=== PATIENT | female | born 1960 | race Caucasian/White ===

== ENCOUNTER 2016-08-05 22:37 | Emergency (ER) | payer BC ==
[~2016-08-05] VITALS: Ht 175.3 cm; Wt 92.5 kg
[~2016-08-05 22:37] MED LIST: ACTOS 30 MG TAB30 MG PO; ALLEGRA ALLERG180 MG PO; BENTYL 10 MG CA10 M1 PO; CYMBALTA30 MG PO; CYMBALTA60 MG PO; FLEXERIL PO; IBUPROFEN 200200 M1 PO; JANUMET 50-5001 EACH PO; LANTUS SC; LEVEMIR100 UNIT/1 SUBQ; MUCINEX TA600 MG/TA2 PO; NEURONTIN300 MG PO; ONDANSETRON HCL4 M2 PO; PROTONIX40 M2 PO; VITAMIN D1000 UNI1 PO
[2016-08-05 23:09] LABS: ABSOLUTE NEUTROPHILS 6.9 thou/uL (1.4-8.2); BASOPHILS 0.5 % (0.0-2.0); EOSINOPHILS 1.2 % (0.0-3.0); HEMATOCRIT 40.7 % (37.0-47.0); HEMOGLOBIN 13.8 gm/dL (12.0-15.0); LYMPHOCYTES 18.9 % (24.0-44.0); MCH 29.1 pg (26.0-34.0); MCV 85.5 fL (80.0-100.0); MONOCYTES 7.5 % (1.0-8.0); PLATELET COUNT 433 thou/uL (150-400); POLYS 71.9 % (36.0-66.0); RBC 4.76 mil/uL (4.20-5.00); RDW 13.6 % (10.5-14.5); WBC 9.6 thou/uL (4.0-11.0)
[2016-08-05 23:10] LABS: MANUAL DIFF NO
[2016-08-05 23:17] LABS: CALCIUM 9.7 mg/dL (8.5-10.1); CREATININE 1.1 mg/dL (0.6-1.0); POTASSIUM 3.2 mmol/L (3.5-5.1)
[2016-08-05 23:22] LABS: ALBUMIN 3.5 g/dL (3.4-5.0); TOTAL BILIRUBIN 0.5 mg/dL (<0.1-1.0); TOTAL PROTEIN 7.5 g/dL (6.4-8.2)
[2016-08-06 00:55] LABS: URINE BLOOD NEGATIVE (Negative); URINE COLOR YELLOW; URINE GLUCOSE-RANDOM* NEGATIVE (Negative); URINE KETONES TRACE (Negative); URINE LEUKOCYTES-REFLEX 1+ (Negative); URINE PROTEIN (DIPSTICK) 1+ (Negative); URINE SPECIFIC GRAVITY >= 1.030 (1.003-1.035); URINE UROBILINOGEN 0.2 E.U./dl (0.2-1.0)
[2016-08-06 01:02] LABS: ICTOTEST (BILI CONFIRMATORY) Negative (Negative); URINE BILIRUBIN NEGATIVE (Negative)
[2016-08-06 01:59] LABS: CRYSTALS None Seen /LPF (None Seen); HYALINE CASTS >10 Many /LPF (None Seen); SQUAMOUS 0-3 Few /LPF (0-3); URINE RBC None Seen /HPF (0-2); URINE WBC-REFLEX 6-15 Few /HPF (0-5); WBC CLUMPS Rare (None Seen)
[2016-08-06] MEDS ORDERED: CIPROFLOXACIN500 M1 PO (02:28)
[2016-08-06] MEDS ORDERED: PHENERGAN 25 MG25 M1 PO (02:28)
== END 2016-08-06 03:01 ==
LOC: ER 22:37
PROVIDERS: Emergency Medicine
DX: N39.0 Urinary tract infection, site not specified (principal); F10.99 Alcohol use, unspecified with unspecified alcohol-induced disorder; Z98.890 Other specified postprocedural states; Z88.2 Allergy status to sulfonamides; Z91.09 Other allergy status, other than to drugs and biological substances

== ENCOUNTER 2017-12-17 15:59 | Inpatient (IN) | payer BC ==
[~2017-12-17] VITALS: Ht 175.3 cm; Wt 112.0 kg
--- NOTE | ~2017-12-17 | EKG ---
[place] [address] [facility] [place] [address] ELECTROCARDIOGRAM REPORT Name: JUNE RUBIN Room #: [facility]#: [id number] Admission: 12/17/17 Attend Phys: Discharge: Date of : 56 Report #: [id number] THIS REPORT FOR: //name// [facility] ED Test Date: 2017-12-17 Test Time: 16:20:43 Pat Name: JUNE RUBIN Department: Room: Gender: F Sponsorship Manager: PANDA : 1960 Requested By: Desiree Hernandez Order Number: [id number] MD: Zacarias Mireles Measurements Intervals [place] Rate: 121 P: MN: QRS: 7 QRSD: 87 T: 42 QT: 316 QTc: 449 Interpretive Statements Atrial fibrillation Low voltage, extremity leads No previous ECG available for comparison Electronically Signed On 12-17-2017 17:22:45 CDT by Zacarias Mireles [email or web address] <ELECTRONICALLY SIGNED> By: Zacarias Mireles MD, [facility] 12/17/17 1722 1620 1620 Zaacrias Mireles MD, FACC /EPI
[2017-12-17 15:59] VITALS: BP 134/89
[~2017-12-17 15:59] MED LIST changes: +CIPROFLOXACIN500 M1 PO; +PHENERGAN 25 MG25 M1 PO
[2017-12-17] MEDS ORDERED: NEURONTIN600 MG PO ×2 (16:11)
[2017-12-17 16:21] LABS: HEMATOCRIT 40.9 % (37.0-47.0); HEMOGLOBIN 13.8 gm/dL (12.0-15.0); MCH 28.6 pg (26.0-34.0); MCHC 33.8 g/dL (28.0-37.0); MCV 84.6 fL (80.0-100.0); PLATELET COUNT 443 thou/uL (150-400); RBC 4.83 mil/uL (4.20-5.00); RDW 13.7 % (10.5-14.5); WBC 21.9 thou/uL (4.0-11.0)
[2017-12-17 16:31] LABS: CREATININE 1.4 mg/dL (0.6-1.0); POTASSIUM 4.3 mmol/L (3.5-5.1)
[2017-12-17 16:37] LABS: ALBUMIN 2.6 g/dL (3.4-5.0); TOTAL BILIRUBIN 0.5 mg/dL (<0.1-1.0); TOTAL PROTEIN 8.9 g/dL (6.4-8.2)
[2017-12-17 16:55] LABS: ABSOLUTE NEUTROPHILS 20.1 thou/uL (1.4-8.2)
[2017-12-17 17:07] LABS: HCO3 21.7 mmol/L (22.0-26.0); PCO2 VENOUS 41.8 mmHg (41.0-51.0)
[2017-12-17 17:45] LABS: URINE BLOOD 2+ (Negative); URINE CLARITY CLEAR; URINE COLOR YELLOW; URINE GLUCOSE-RANDOM* 3+ (Negative); URINE KETONES 3+ (Negative); URINE LEUKOCYTES TRACE (Negative); URINE NITRITE NEGATIVE (Negative); URINE PROTEIN (DIPSTICK) 1+ (Negative); URINE UROBILINOGEN 0.2 E.U./dl (0.2-1.0)
[2017-12-17 17:47] LABS: ICTOTEST (BILI CONFIRMATORY) Negative (Negative); URINE BILIRUBIN NEGATIVE (Negative)
[2017-12-17 17:52] LABS: CASTS None Seen /LPF (None Seen); CRYSTALS None Seen /LPF (None Seen); SQUAMOUS 0-3 Few /LPF (0-3); URINE RBC 3-10 Few /HPF (0-2); URINE WBC >25 Many /HPF (0-5)
[2017-12-17 18:35] VITALS: BP 161/90
[2017-12-17 19:08] VITALS: BP 152/81
[2017-12-17 19:50] VITALS: BP 146/84
[2017-12-18 03:18] VITALS: BP 138/73
[2017-12-18 06:08] LABS: HEMATOCRIT 35.6 % (37.0-47.0); MCH 27.7 pg (26.0-34.0); MCHC 32.7 g/dL (28.0-37.0); MCV 84.8 fL (80.0-100.0); RBC 4.2 mil/uL (4.20-5.00); RDW 13.7 % (10.5-14.5); WBC 17.5 thou/uL (4.0-11.0)
[2017-12-18 06:27] LABS: HEMOGLOBIN 11.6 gm/dL (12.0-15.0)
[2017-12-18 06:29] LABS: CALCIUM 8.6 mg/dL (8.5-10.1); CREATININE 1.1 mg/dL (0.6-1.0); POTASSIUM 4.2 mmol/L (3.5-5.1)
[2017-12-18] MEDS ORDERED: JANUMET 50-5001 EACH PO (09:28)
[2017-12-18] MEDS ORDERED: ALLEGRA ALLERG180 MG PO (09:30)
[2017-12-18 10:45] VITALS: BP 157/84
[2017-12-18 15:40] VITALS: BP 171/72
[2017-12-19 06:03] VITALS: BP 151/83
[2017-12-19 07:35] VITALS: BP 155/71
[2017-12-19 07:48] LABS: HEMATOCRIT 33.3 % (37.0-47.0); HEMOGLOBIN 11.1 gm/dL (12.0-15.0); MCH 27.9 pg (26.0-34.0); MCHC 33.3 g/dL (28.0-37.0); RBC 3.96 mil/uL (4.20-5.00); RDW 13.8 % (10.5-14.5); WBC 12.1 thou/uL (4.0-11.0)
[2017-12-19 08:01] LABS: CALCIUM 8.4 mg/dL (8.5-10.1); CREATININE 0.9 mg/dL (0.6-1.0); POTASSIUM 3.3 mmol/L (3.5-5.1)
[2017-12-19 20:00] VITALS: BP 120/73
[2017-12-20 08:18] VITALS: BP 119/71
[2017-12-20 08:39] LABS: HEMATOCRIT 32.3 % (37.0-47.0); HEMOGLOBIN 10.6 gm/dL (12.0-15.0); MCH 27.7 pg (26.0-34.0); MCHC 32.8 g/dL (28.0-37.0); MCV 84.4 fL (80.0-100.0); RBC 3.82 mil/uL (4.20-5.00); RDW 13.9 % (10.5-14.5); WBC 10.2 thou/uL (4.0-11.0)
[2017-12-20 08:44] LABS: CALCIUM 8.6 mg/dL (8.5-10.1); CREATININE 0.9 mg/dL (0.6-1.0); POTASSIUM 3.2 mmol/L (3.5-5.1)
[2017-12-20 19:50] VITALS: BP 160/85
[2017-12-21] MEDS ORDERED: CEFDINIR300 MG PO (07:52)
[2017-12-21 07:56] VITALS: BP 160/85
[2017-12-21 08:10] VITALS: BP 144/89
[2017-12-21 10:23] VITALS: BP 160/85
[2017-12-21 12:52] VITALS: BP 160/85
[2017-12-21 13:02] VITALS: BP 160/85
[2017-12-21 13:31] VITALS: BP 160/85
== END 2017-12-21 14:23 | disposition home or self-care (01) | DRG 871 ==
LOC: ER 15:59 → EROBS 18:21 → 4W 18:21 → SICU 12-18 19:54
PROVIDERS: Family Medicine; Physician Assistant
DX: A41.9 Sepsis, unspecified organism (principal); N17.0 Acute kidney failure with tubular necrosis; N39.0 Urinary tract infection, site not specified; N17.9 Acute kidney failure, unspecified; E86.0 Dehydration; E11.9 Type 2 diabetes mellitus without complications; Z88.2 Allergy status to sulfonamides; Z91.048 Other nonmedicinal substance allergy status; Z23 Encounter for immunization; Z79.899 Other long term (current) drug therapy
CPT/HCPCS: 10045; 15002

== ENCOUNTER → 2018-07-18 | Outpatient (CLI) | payer BC ==
[~2018-07-18] MED LIST changes: +CEFDINIR300 MG PO; +NEURONTIN600 MG PO
== END ==
LOC: HYPER 06:49
DX: E11.621 Type 2 diabetes mellitus with foot ulcer (principal); L97.521 Non-pressure chronic ulcer of other part of left foot limited to breakdown of skin; L97.512 Non-pressure chronic ulcer of other part of right foot with fat layer exposed; L84 Corns and callosities; E11.610 Type 2 diabetes mellitus with diabetic neuropathic arthropathy; E11.40 Type 2 diabetes mellitus with diabetic neuropathy, unspecified; K21.9 Gastro-esophageal reflux disease without esophagitis; M19.90 Unspecified osteoarthritis, unspecified site; M81.0 Age-related osteoporosis without current pathological fracture; F32.9 Major depressive disorder, single episode, unspecified; F41.9 Anxiety disorder, unspecified; Z79.4 Long term (current) use of insulin; Z98.41 Cataract extraction status, right eye

== ENCOUNTER → 2018-07-25 | Outpatient (CLI) | payer BC | LOC: HYPER 06:45 | DX: E11.621 Type 2 diabetes mellitus with foot ulcer (principal); L97.521 Non-pressure chronic ulcer of other part of left foot limited to breakdown of skin; L97.512 Non-pressure chronic ulcer of other part of right foot with fat layer exposed; L84 Corns and callosities; E11.610 Type 2 diabetes mellitus with diabetic neuropathic arthropathy; E11.40 Type 2 diabetes mellitus with diabetic neuropathy, unspecified; K21.9 Gastro-esophageal reflux disease without esophagitis; M81.0 Age-related osteoporosis without current pathological fracture; M19.90 Unspecified osteoarthritis, unspecified site; F32.9 Major depressive disorder, single episode, unspecified; F41.9 Anxiety disorder, unspecified; Z79.4 Long term (current) use of insulin ==

== ENCOUNTER → 2018-08-01 | Outpatient (CLI) | payer BC | LOC: HYPER 06:52 | DX: E11.621 Type 2 diabetes mellitus with foot ulcer (principal); L97.521 Non-pressure chronic ulcer of other part of left foot limited to breakdown of skin; L97.512 Non-pressure chronic ulcer of other part of right foot with fat layer exposed; L84 Corns and callosities; E11.610 Type 2 diabetes mellitus with diabetic neuropathic arthropathy; E11.40 Type 2 diabetes mellitus with diabetic neuropathy, unspecified; K21.9 Gastro-esophageal reflux disease without esophagitis; M19.90 Unspecified osteoarthritis, unspecified site; M81.0 Age-related osteoporosis without current pathological fracture; F32.9 Major depressive disorder, single episode, unspecified; F41.9 Anxiety disorder, unspecified; Z79.4 Long term (current) use of insulin ==

== ENCOUNTER → 2018-08-08 | Outpatient (CLI) | payer BC | LOC: HYPER 06:52 | DX: E11.621 Type 2 diabetes mellitus with foot ulcer (principal); L97.521 Non-pressure chronic ulcer of other part of left foot limited to breakdown of skin; L97.512 Non-pressure chronic ulcer of other part of right foot with fat layer exposed; E11.40 Type 2 diabetes mellitus with diabetic neuropathy, unspecified; L84 Corns and callosities; K21.9 Gastro-esophageal reflux disease without esophagitis; M19.90 Unspecified osteoarthritis, unspecified site; M81.0 Age-related osteoporosis without current pathological fracture; F41.9 Anxiety disorder, unspecified; F32.9 Major depressive disorder, single episode, unspecified; Z79.4 Long term (current) use of insulin; Z87.01 Personal history of pneumonia (recurrent) ==

== ENCOUNTER → 2018-08-14 | Outpatient (CLI) | payer BC | LOC: HYPER 06:48 | DX: E11.621 Type 2 diabetes mellitus with foot ulcer (principal); L97.521 Non-pressure chronic ulcer of other part of left foot limited to breakdown of skin; L97.512 Non-pressure chronic ulcer of other part of right foot with fat layer exposed; E11.610 Type 2 diabetes mellitus with diabetic neuropathic arthropathy; L84 Corns and callosities; E11.40 Type 2 diabetes mellitus with diabetic neuropathy, unspecified; K21.9 Gastro-esophageal reflux disease without esophagitis; M19.90 Unspecified osteoarthritis, unspecified site; M81.0 Age-related osteoporosis without current pathological fracture; F32.9 Major depressive disorder, single episode, unspecified; F41.9 Anxiety disorder, unspecified; F39 Unspecified mood [affective] disorder; Z79.4 Long term (current) use of insulin; Z87.01 Personal history of pneumonia (recurrent) ==

== ENCOUNTER → 2018-08-21 | Outpatient (CLI) | payer BC | LOC: HYPER 06:36 | DX: E11.621 Type 2 diabetes mellitus with foot ulcer (principal); L97.512 Non-pressure chronic ulcer of other part of right foot with fat layer exposed; L97.521 Non-pressure chronic ulcer of other part of left foot limited to breakdown of skin; E11.610 Type 2 diabetes mellitus with diabetic neuropathic arthropathy; E11.40 Type 2 diabetes mellitus with diabetic neuropathy, unspecified; L84 Corns and callosities; K21.9 Gastro-esophageal reflux disease without esophagitis; M19.90 Unspecified osteoarthritis, unspecified site; M81.0 Age-related osteoporosis without current pathological fracture; F32.9 Major depressive disorder, single episode, unspecified; F41.9 Anxiety disorder, unspecified; Z87.01 Personal history of pneumonia (recurrent); Z79.4 Long term (current) use of insulin ==

== ENCOUNTER → 2018-08-28 | Outpatient (CLI) | payer BC | LOC: HYPER 06:27 | DX: E11.621 Type 2 diabetes mellitus with foot ulcer (principal); L97.521 Non-pressure chronic ulcer of other part of left foot limited to breakdown of skin; L97.512 Non-pressure chronic ulcer of other part of right foot with fat layer exposed; E11.610 Type 2 diabetes mellitus with diabetic neuropathic arthropathy; E11.40 Type 2 diabetes mellitus with diabetic neuropathy, unspecified; K21.9 Gastro-esophageal reflux disease without esophagitis; M19.90 Unspecified osteoarthritis, unspecified site; M81.0 Age-related osteoporosis without current pathological fracture; F32.9 Major depressive disorder, single episode, unspecified; Z79.4 Long term (current) use of insulin; Z87.01 Personal history of pneumonia (recurrent) ==

== ENCOUNTER → 2018-09-03 | Outpatient (CLI) | payer BC | LOC: HYPER 06:43 | DX: E11.621 Type 2 diabetes mellitus with foot ulcer (principal); L97.521 Non-pressure chronic ulcer of other part of left foot limited to breakdown of skin; L97.512 Non-pressure chronic ulcer of other part of right foot with fat layer exposed; E11.610 Type 2 diabetes mellitus with diabetic neuropathic arthropathy; E11.40 Type 2 diabetes mellitus with diabetic neuropathy, unspecified; L84 Corns and callosities; K21.9 Gastro-esophageal reflux disease without esophagitis; M19.90 Unspecified osteoarthritis, unspecified site; M81.0 Age-related osteoporosis without current pathological fracture; F41.9 Anxiety disorder, unspecified; F32.9 Major depressive disorder, single episode, unspecified; Z87.01 Personal history of pneumonia (recurrent); Z79.4 Long term (current) use of insulin ==

== ENCOUNTER → 2018-09-18 | Outpatient (CLI) | payer BC | LOC: HYPER 06:26 | DX: E11.621 Type 2 diabetes mellitus with foot ulcer (principal); L97.512 Non-pressure chronic ulcer of other part of right foot with fat layer exposed; L97.521 Non-pressure chronic ulcer of other part of left foot limited to breakdown of skin; E11.610 Type 2 diabetes mellitus with diabetic neuropathic arthropathy; E11.40 Type 2 diabetes mellitus with diabetic neuropathy, unspecified; L84 Corns and callosities; K21.9 Gastro-esophageal reflux disease without esophagitis; M19.90 Unspecified osteoarthritis, unspecified site; M81.0 Age-related osteoporosis without current pathological fracture; F41.9 Anxiety disorder, unspecified; F32.9 Major depressive disorder, single episode, unspecified; Z79.4 Long term (current) use of insulin; Z87.01 Personal history of pneumonia (recurrent) ==

== ENCOUNTER → 2018-09-25 | Outpatient (CLI) | payer BC | LOC: HYPER 06:37 | DX: E11.621 Type 2 diabetes mellitus with foot ulcer (principal); L97.521 Non-pressure chronic ulcer of other part of left foot limited to breakdown of skin; L97.512 Non-pressure chronic ulcer of other part of right foot with fat layer exposed; L84 Corns and callosities; E11.610 Type 2 diabetes mellitus with diabetic neuropathic arthropathy; E11.40 Type 2 diabetes mellitus with diabetic neuropathy, unspecified; K21.9 Gastro-esophageal reflux disease without esophagitis; M19.90 Unspecified osteoarthritis, unspecified site; M81.0 Age-related osteoporosis without current pathological fracture; F32.9 Major depressive disorder, single episode, unspecified; F41.9 Anxiety disorder, unspecified; Z79.4 Long term (current) use of insulin ==

== ENCOUNTER → 2018-10-03 | Outpatient (CLI) | payer BC | LOC: HYPER 06:53 | DX: E11.621 Type 2 diabetes mellitus with foot ulcer (principal); L97.512 Non-pressure chronic ulcer of other part of right foot with fat layer exposed; L97.521 Non-pressure chronic ulcer of other part of left foot limited to breakdown of skin; E11.610 Type 2 diabetes mellitus with diabetic neuropathic arthropathy; E11.40 Type 2 diabetes mellitus with diabetic neuropathy, unspecified; L84 Corns and callosities; K21.9 Gastro-esophageal reflux disease without esophagitis; M19.90 Unspecified osteoarthritis, unspecified site; M81.0 Age-related osteoporosis without current pathological fracture; F41.9 Anxiety disorder, unspecified; F32.9 Major depressive disorder, single episode, unspecified; Z79.4 Long term (current) use of insulin; Z87.01 Personal history of pneumonia (recurrent) ==

== ENCOUNTER → 2018-10-17 | Outpatient (CLI) | payer BC | LOC: HYPER 06:51 | DX: E11.621 Type 2 diabetes mellitus with foot ulcer (principal); L97.521 Non-pressure chronic ulcer of other part of left foot limited to breakdown of skin; L97.512 Non-pressure chronic ulcer of other part of right foot with fat layer exposed; L84 Corns and callosities; E11.610 Type 2 diabetes mellitus with diabetic neuropathic arthropathy; E11.40 Type 2 diabetes mellitus with diabetic neuropathy, unspecified; K21.9 Gastro-esophageal reflux disease without esophagitis; M19.90 Unspecified osteoarthritis, unspecified site; M81.0 Age-related osteoporosis without current pathological fracture; F41.9 Anxiety disorder, unspecified; F32.9 Major depressive disorder, single episode, unspecified; Z79.4 Long term (current) use of insulin ==

== ENCOUNTER → 2018-10-31 | Outpatient (CLI) | payer BC | LOC: HYPER 06:56 | DX: E11.621 Type 2 diabetes mellitus with foot ulcer (principal); L97.512 Non-pressure chronic ulcer of other part of right foot with fat layer exposed; L97.521 Non-pressure chronic ulcer of other part of left foot limited to breakdown of skin; E11.610 Type 2 diabetes mellitus with diabetic neuropathic arthropathy; L84 Corns and callosities; E11.40 Type 2 diabetes mellitus with diabetic neuropathy, unspecified; K21.9 Gastro-esophageal reflux disease without esophagitis; M19.90 Unspecified osteoarthritis, unspecified site; M81.0 Age-related osteoporosis without current pathological fracture; F41.9 Anxiety disorder, unspecified; F32.9 Major depressive disorder, single episode, unspecified; Z79.4 Long term (current) use of insulin; Z87.01 Personal history of pneumonia (recurrent) ==

== ENCOUNTER → 2018-11-14 | Outpatient (CLI) | payer BC | LOC: HYPER 06:57 | DX: E11.621 Type 2 diabetes mellitus with foot ulcer (principal); L97.521 Non-pressure chronic ulcer of other part of left foot limited to breakdown of skin; L97.512 Non-pressure chronic ulcer of other part of right foot with fat layer exposed; E11.610 Type 2 diabetes mellitus with diabetic neuropathic arthropathy; E11.40 Type 2 diabetes mellitus with diabetic neuropathy, unspecified; K21.9 Gastro-esophageal reflux disease without esophagitis; L84 Corns and callosities; M19.90 Unspecified osteoarthritis, unspecified site; M81.0 Age-related osteoporosis without current pathological fracture; F41.9 Anxiety disorder, unspecified; F32.9 Major depressive disorder, single episode, unspecified; Z79.4 Long term (current) use of insulin; Z87.01 Personal history of pneumonia (recurrent) ==

== ENCOUNTER → 2018-12-04 | Outpatient (CLI) | payer BC | LOC: HYPER 07:09 | DX: E11.621 Type 2 diabetes mellitus with foot ulcer (principal); L97.521 Non-pressure chronic ulcer of other part of left foot limited to breakdown of skin; L97.512 Non-pressure chronic ulcer of other part of right foot with fat layer exposed; L84 Corns and callosities; E11.610 Type 2 diabetes mellitus with diabetic neuropathic arthropathy; E11.40 Type 2 diabetes mellitus with diabetic neuropathy, unspecified; M19.90 Unspecified osteoarthritis, unspecified site; M81.0 Age-related osteoporosis without current pathological fracture; K21.9 Gastro-esophageal reflux disease without esophagitis; F41.9 Anxiety disorder, unspecified; F32.9 Major depressive disorder, single episode, unspecified; Z79.4 Long term (current) use of insulin ==

== ENCOUNTER → 2019-01-14 | Outpatient (CLI) | payer BC | LOC: HYPER 09:30 | DX: E11.621 Type 2 diabetes mellitus with foot ulcer (principal); L97.512 Non-pressure chronic ulcer of other part of right foot with fat layer exposed; L97.521 Non-pressure chronic ulcer of other part of left foot limited to breakdown of skin; E11.610 Type 2 diabetes mellitus with diabetic neuropathic arthropathy; E11.40 Type 2 diabetes mellitus with diabetic neuropathy, unspecified; L84 Corns and callosities; K21.9 Gastro-esophageal reflux disease without esophagitis; M19.90 Unspecified osteoarthritis, unspecified site; M81.0 Age-related osteoporosis without current pathological fracture; F41.9 Anxiety disorder, unspecified; F32.9 Major depressive disorder, single episode, unspecified; Z79.4 Long term (current) use of insulin; Z87.01 Personal history of pneumonia (recurrent) ==

== ENCOUNTER → 2019-01-28 | Outpatient (CLI) | payer BC | LOC: HYPER 16:45 | DX: E11.621 Type 2 diabetes mellitus with foot ulcer (principal); L97.512 Non-pressure chronic ulcer of other part of right foot with fat layer exposed; E11.610 Type 2 diabetes mellitus with diabetic neuropathic arthropathy; E11.40 Type 2 diabetes mellitus with diabetic neuropathy, unspecified; L84 Corns and callosities; K21.9 Gastro-esophageal reflux disease without esophagitis; M19.90 Unspecified osteoarthritis, unspecified site; M81.0 Age-related osteoporosis without current pathological fracture; F41.9 Anxiety disorder, unspecified; F32.9 Major depressive disorder, single episode, unspecified; Z79.4 Long term (current) use of insulin; Z87.01 Personal history of pneumonia (recurrent) ==

== ENCOUNTER → 2019-03-11 | Outpatient (CLI) | payer OTHER | LOC: HYPER 09:58 | DX: E11.621 Type 2 diabetes mellitus with foot ulcer (principal); L97.512 Non-pressure chronic ulcer of other part of right foot with fat layer exposed; L84 Corns and callosities; E11.610 Type 2 diabetes mellitus with diabetic neuropathic arthropathy; E11.40 Type 2 diabetes mellitus with diabetic neuropathy, unspecified; E66.9 Obesity, unspecified; K21.9 Gastro-esophageal reflux disease without esophagitis; M19.90 Unspecified osteoarthritis, unspecified site; M81.0 Age-related osteoporosis without current pathological fracture; F41.9 Anxiety disorder, unspecified; F32.9 Major depressive disorder, single episode, unspecified; Z68.35 Body mass index [BMI] 35.0-35.9, adult; Z79.4 Long term (current) use of insulin ==

== ENCOUNTER → 2019-06-19 | Outpatient (CLI) | payer OTHER | LOC: HYPER 08:55 | DX: E11.621 Type 2 diabetes mellitus with foot ulcer (principal); L97.512 Non-pressure chronic ulcer of other part of right foot with fat layer exposed; L84 Corns and callosities; E11.610 Type 2 diabetes mellitus with diabetic neuropathic arthropathy; E11.40 Type 2 diabetes mellitus with diabetic neuropathy, unspecified; E66.9 Obesity, unspecified; M19.90 Unspecified osteoarthritis, unspecified site; M81.0 Age-related osteoporosis without current pathological fracture; K21.9 Gastro-esophageal reflux disease without esophagitis; F32.9 Major depressive disorder, single episode, unspecified; F41.9 Anxiety disorder, unspecified; Z79.4 Long term (current) use of insulin; Z68.35 Body mass index [BMI] 35.0-35.9, adult ==

== ENCOUNTER → 2019-08-25 | Outpatient (CLI) | payer OTHER | LOC: HYPER 09:50 | PROVIDERS: ATTEND Emergency Medicine Emergency Medical Services | DX: E11.621 Type 2 diabetes mellitus with foot ulcer (principal); L97.512 Non-pressure chronic ulcer of other part of right foot with fat layer exposed; L84 Corns and callosities; E11.610 Type 2 diabetes mellitus with diabetic neuropathic arthropathy; E11.40 Type 2 diabetes mellitus with diabetic neuropathy, unspecified; E66.9 Obesity, unspecified; K21.9 Gastro-esophageal reflux disease without esophagitis; M19.90 Unspecified osteoarthritis, unspecified site; M81.0 Age-related osteoporosis without current pathological fracture; F32.9 Major depressive disorder, single episode, unspecified; F41.9 Anxiety disorder, unspecified; Z79.4 Long term (current) use of insulin; Z68.35 Body mass index [BMI] 35.0-35.9, adult ==

== ENCOUNTER → 2019-09-30 | Outpatient (CLI) | payer OTHER | LOC: HYPER 10:51 | PROVIDERS: ATTEND Emergency Medicine | DX: E11.621 Type 2 diabetes mellitus with foot ulcer (principal); L97.512 Non-pressure chronic ulcer of other part of right foot with fat layer exposed; L84 Corns and callosities; E11.610 Type 2 diabetes mellitus with diabetic neuropathic arthropathy; E11.40 Type 2 diabetes mellitus with diabetic neuropathy, unspecified; E66.9 Obesity, unspecified; K21.9 Gastro-esophageal reflux disease without esophagitis; M81.0 Age-related osteoporosis without current pathological fracture; M19.90 Unspecified osteoarthritis, unspecified site; F41.9 Anxiety disorder, unspecified; F32.9 Major depressive disorder, single episode, unspecified; Z79.4 Long term (current) use of insulin; Z68.35 Body mass index [BMI] 35.0-35.9, adult ==

== ENCOUNTER → 2019-10-14 | Outpatient (CLI) | payer OTHER | LOC: LAB 10:22 | PROVIDERS: ATTEND Family Medicine | DX: R06.02 Shortness of breath (principal); R05 Cough; Z20.828 Contact with and (suspected) exposure to other viral communicable diseases ==

== ENCOUNTER → 2019-10-22 | Outpatient (CLI) | payer OTHER | LOC: HYPER 09:16 | PROVIDERS: ATTEND Emergency Medicine | DX: E11.621 Type 2 diabetes mellitus with foot ulcer (principal); L97.512 Non-pressure chronic ulcer of other part of right foot with fat layer exposed; L84 Corns and callosities; E11.610 Type 2 diabetes mellitus with diabetic neuropathic arthropathy; E11.40 Type 2 diabetes mellitus with diabetic neuropathy, unspecified; E66.9 Obesity, unspecified; K21.9 Gastro-esophageal reflux disease without esophagitis; M19.90 Unspecified osteoarthritis, unspecified site; M81.0 Age-related osteoporosis without current pathological fracture; F41.9 Anxiety disorder, unspecified; F32.9 Major depressive disorder, single episode, unspecified; Z79.4 Long term (current) use of insulin; Z68.35 Body mass index [BMI] 35.0-35.9, adult ==

== ENCOUNTER → 2019-11-26 | Outpatient (CLI) | payer OTHER | LOC: HYPER 11-05 16:41 | PROVIDERS: ATTEND Emergency Medicine | DX: E11.621 Type 2 diabetes mellitus with foot ulcer (principal); L97.512 Non-pressure chronic ulcer of other part of right foot with fat layer exposed; L84 Corns and callosities; E11.610 Type 2 diabetes mellitus with diabetic neuropathic arthropathy; E11.40 Type 2 diabetes mellitus with diabetic neuropathy, unspecified; E66.9 Obesity, unspecified; K21.9 Gastro-esophageal reflux disease without esophagitis; M19.90 Unspecified osteoarthritis, unspecified site; M81.0 Age-related osteoporosis without current pathological fracture; F41.9 Anxiety disorder, unspecified; F32.9 Major depressive disorder, single episode, unspecified; Z79.4 Long term (current) use of insulin; Z68.35 Body mass index [BMI] 35.0-35.9, adult ==

== ENCOUNTER 2019-12-09 11:03 | Emergency (ER) | payer OTHER ==
[~2019-12-09] VITALS: Ht 175.3 cm; Wt 104.3 kg
[2019-12-09 11:07] VITALS: BP 128/61
== END 2019-12-09 13:30 | disposition home or self-care (01) ==
LOC: ER 11:03
DX: S01.81XA Laceration without foreign body of other part of head, initial encounter (principal); E11.9 Type 2 diabetes mellitus without complications; Z90.89 Acquired absence of other organs; Z79.4 Long term (current) use of insulin; Z79.899 Other long term (current) drug therapy; Z91.048 Other nonmedicinal substance allergy status; Z88.2 Allergy status to sulfonamides; W01.0XXA Fall on same level from slipping, tripping and stumbling without subsequent striking against object, initial encounter; Y93.89 Activity, other specified; Y92.89 Other specified places as the place of occurrence of the external cause; Y99.8 Other external cause status

== ENCOUNTER 2019-12-11 19:30 | Inpatient (IN) | payer BC ==
[~2019-12-11] VITALS: Ht 175.3 cm; Wt 99.4 kg
--- NOTE | ~2019-12-11 | EMS ---
[address] [address] EMS Patient Care Report Name: JUNE RUBIN Room #: 216-P ADM IN M.R.#: [id number] Admission: 12/11/19 Attend Phys: Emmanuel Epperson MD Discharge: Date of : 56 Report #: [id number] THIS REPORT FOR: //name// Report Transmitted: 12/12/2019 09:33 EMS Care Summary [place], [place]/[facility] Incident [id number] @ 12/11/2019 18:51 Incident Location [facility] [address] [place] [address] Patient JUNE RUBIN Female, 59 Years 1960 Patient Address [address] [place] [address] Patient History Cardiac Arrythmia, Patient Allergies No known allergies, Patient Medications Nitroglycerin, Chief Complaint CHEST PAIN Disposition Transported No Lights/[place] Dispatch Reason Chest Pain (Non-Traumatic) Transported To [facility] Narrative PT STATES THAT PT IS HAVING CHEST PAIN. PT STATES THAT PT'S CHEST PAIN RADIATES TO HER ELBOWS. PT STATES THAT PAIN ALL STARTED WHEN PT WAS LAYING DOWN. PT ADMITS TO NAUSEA. PT DENIES SOA. PT DESCRIBES PAIN A DULL AND FEELING BETTER THAN IT DID. PT HAS NOT OTHER OBVIOUS ABNORMALITIES. [address] [address] EMS Patient Care Report Name: JUNE RUBIN Room #: 216-P [facility] IN [facility]#: [id number] Admission: 12/11/19 Attend Phys: Emmanuel Epperson MD Discharge: Date of : 56 Report #: [id number] PT WAS FOUND SITTING BY PT'S FRONT DOOR. PT SPOKE IN FULL AND COMPLETE SENTENCES. PT IS ABLE TO STAND AND PIVOT TO GET ONTO EMS COT. PT HAS BOTTLE OF NITRO WITH PT WHEN EMS ARRIVES ON SCENE. PT HAS NO OTHER OBVIOUS ABNORMALITIES. Initial Vitals @19:11P: 151, @19:26P: 125,SpO2: 97, @19:12P: 201, @19:25P: 81,BP: 75/56,SpO2: 97, @19:10P: 61, @19:21P: 245,SpO2: 96, @19:20P: 80,R: 18,BP: 103/61,Pain: 6/10,GCS: 15,SpO2: 96,Revised Trauma: 12, @19:06P: 59,R: 18,GCS: 15,Glucose: 121,SpO2: 99,IL Suspected: true @19:04P: 36, @19:19P: 61,CO: 1,SpO2: 83, @19:24P: 64,SpO2: 83, Assessments @19:30MENTAL:Person Oriented,Event Oriented,Time Oriented,Place Oriented,SKIN:Pale,HEENT:Eyes: Left Pupil: 4-mm,Eyes: Right Pupil: 4-mm,Head/Face: No Abnormalities,Neck/Airway: No Abnormalities,LUNG SOUNDS:General: No Abnormalities,ABDOMEN:General: No Abnormalities,PELVIS//GI:EXTREMITIES:Capillary Refill: Right Upper: < 2 Sec,Left Arm: No Abnormalities,Right Arm: No Abnormalities,Left Leg: No Abnormalities,Right Leg: No Abnormalities,PULSE:Radial: 2+ Normal,NEURO:No Abnormalities, Impression Angina pectoris Procedures @19:0612-Lead ECGResponse: UnchangedSucceeded@19:1012-Lead ECGResponse: UnchangedSucceeded@18:59ALS AssessmentResponse: UnchangedSucceeded@19:30STEMI Alert@19:023-Lead ECGResponse: UnchangedSucceeded@19:08Aspirin - 324 Milligrams (mg) - OralResponse: Unchanged@19:12Saline Lock 100cc (18 ga) Site: Antecubital-LeftResponse: UnchangedSucceeded@19:20Nitrostat - 0.4 Milligrams (mg) - SublingualResponse: Unchanged Timeline 18:50,Call Received 18:50,Dispatch Notified 18:51,Dispatched 18:53,En Route 18:58,On Scene 18:59,At Patient [address] [address] EMS Patient Care Report Name: JUNE RUBIN Room #: 216-P [facility] IN ..#: [id number] Admission: 12/11/19 Attend Phys: Emmanuel Epperson MD Discharge: Date of : 56 Report #: [id number] 18:59,ALS Assessment,Response: UnchangedSucceeded, 19:02,3-Lead ECG,Response: UnchangedSucceeded, 19:04,BP: / M,PULSE: 36,RR: R,SPO2: Ox,ETCO2: ,BG: ,PAIN: ,GCS: , 19:06,12-Lead ECG,Response: UnchangedSucceeded, 19:06,BP: / M,PULSE: 59,RR: 18 R,SPO2: 99 Ox,ETCO2: ,B,PAIN: ,GCS: 15, 19:08,Aspirin - 324 Milligrams (mg) - Oral,Response: Unchanged 19:10,12-Lead ECG,Response: UnchangedSucceeded, 19:10,BP: / M,PULSE: 61,RR: R,SPO2: Ox,ETCO2: ,BG: ,PAIN: ,GCS: , 19:11,BP: / M,PULSE: 151,RR: R,SPO2: Ox,ETCO2: ,BG: ,PAIN: ,GCS: , 19:12,Saline Lock 100cc 18 ga Site: Antecubital-Left,Response: UnchangedSucceeded, 19:12,BP: / M,PULSE: 201,RR: R,SPO2: Ox,ETCO2: ,BG: ,PAIN: ,GCS: , 19:18,Depart Scene 19:19,BP: / M,PULSE: 61,RR: R,SPO2: 83 Ox,ETCO2: ,BG: ,PAIN: ,GCS: , 19:20,Nitrostat - 0.4 Milligrams (mg) - Sublingual,Response: Unchanged 19:20,BP: 103/61 M,PULSE: 80,RR: 18 R,SPO2: 96 Ox,ETCO2: ,BG: ,PAIN: 6,GCS: 15, 19:21,BP: / M,PULSE: 245,RR: R,SPO2: 96 Ox,ETCO2: ,BG: ,PAIN: ,GCS: , 19:24,BP: / M,PULSE: 64,RR: R,SPO2: 83 Ox,ETCO2: ,BG: ,PAIN: ,GCS: , 19:25,BP: 75/56 M,PULSE: 81,RR: R,SPO2: 97 Ox,ETCO2: ,BG: ,PAIN: ,GCS: , 19:26,BP: / M,PULSE: 125,RR: R,SPO2: 97 Ox,ETCO2: ,BG: ,PAIN: ,GCS: , 19:27,At Destination 19:30,STEMI Alert, 19:54,Call Closed Disclaimer v1.1 Copyright 2020 [email or web address] This EMS Care Summary contains data elements from the applicable legal record (which may be displayed differently). It is designed to provide pertinent information for the following purposes: continuity of care, clinical quality, and state data reporting. The complete legal record is available to ED staff and administrators of the receiving hospital in [employer]'s Patient Tracker. All data is provided "as is."
--- NOTE | ~2019-12-11 | HC ---
[facility] [place] [address] CONSULTATION Name: JUNE RUBIN Room #: 248-P ADM IN M.R.#: [id number] Admission: 12/11/19 Attend Phys: Emmanuel Epperson MD Discharge: Date of : 56 Report #: [id number] THIS REPORT FOR: cc: Emmanuel Epperson MD, Neal A. MD Smithson, David G. MD ~ DATE OF SERVICE: 12/17/2019 HISTORY OF PRESENT ILLNESS: The patient is a 59-year-old white female, admitted with chest pain, noted to have severe coronary artery disease, status post coronary artery bypass grafting x 6 on 12/15/2019. She is moving very slowly with her postoperative course as discussed with Dr. Silverio. Her course has been complicated by Klebsiella urinary tract infection. She has obesity, significant weakness, and diabetes mellitus, noted to be poorly controlled. We are seeing her in rehabilitation medicine consultation. PAST MEDICAL HISTORY: Includes obesity and hypertension. She has prior right knee problems and she indicates that she apparently needs a new knee. She has had a history of a prior wound involving the right large toe. Past history also includes irritable bowel syndrome, back surgery in 2017, overactive bladder. She had a left axillary growth removed when she was 17 years old. MEDICATIONS: Please see the full medication listing. ALLERGIES: DUST, MOLD, AND SULFA. SOCIAL HISTORY: She lives in a split level house, which she shares with a roommate. There are 6 steps up, plus another 6 steps to get to the level that she stays on. She was having some problems with her right knee before and her sister notes that she would crawl up the steps. She would use a cane at times and sometimes a walker if the knee was bothering her more. There is a sister 30 minutes away who is currently with her in the ICU as well as another sister that lives in ____. The sister that lives 30 minutes away apparently does not have steps into her abode. REVIEW OF SYSTEMS: Frustrated with her current condition. No specific chest pain, shortness of breath or abdominal discomfort. PHYSICAL EXAMINATION: GENERAL: A 59-year-old obese white female, in no obvious distress. She is 5 feet 9 inches, weighs 247 pounds. NEUROMUSCULOSKELETAL: Facies are symmetric. She follows basic 1 step commands. Mid sternal incision is in place as well as chest tube areas. I did some gentle testing of the upper extremities with strength probably a grade 4- to [address] [address] CONSULTATION Name: JUNE RUBIN Room #: 248-P [facility] IN [facility].#: [id number] Admission: 12/11/19 Attend Phys: Emmanuel Epperson MD Discharge: Date of : 56 Report #: [id number] 3+/5. Lower extremity strength is probably at 3+/5. Tone appeared to be intact. She has been dependent for supine scooting. Bed mobility has been max assist. ASSESSMENT: A 59-year-old white female with the following problem list: 1. Significant generalized weakness and debilitation. 2. Coronary artery disease, status post coronary artery bypass grafting x 6 on 12/15/2019. 3. Diabetes mellitus, poorly controlled. 4. Exogenous obesity. 5. Klebsiella urinary tract infection. 6. Prior history of some right knee problems, which sound like some apparent degenerative arthritis. PLAN: Discussion with Dr. Silverio from Cardiovascular Surgery. Agree that rehabilitation is going to be needed to try to help improve strength, endurance, mobility and ADL independence in this patient. Insurance precertification issues to be checked and we will be glad to follow along with you. 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 By: [id number] Talha Sanchez MD /nt
[~2019-12-11 19:30] MED LIST changes: +JANUMET 50-1,01 EACH PO
[2019-12-11 19:31] VITALS: BP 94/53
[2019-12-11 19:50] LABS: ABSOLUTE NEUTROPHILS 9.5 thou/uL (1.4-8.2); BASOPHILS 0.4 % (0.0-2.0); EOSINOPHILS 2.6 % (0.0-3.0); HEMATOCRIT 33.4 % (37.0-47.0); HEMOGLOBIN 10.9 gm/dL (12.0-15.0); LYMPHOCYTES 28.4 % (24.0-44.0); MCH 27.8 pg (26.0-34.0); MCHC 32.6 g/dL (28.0-37.0); MCV 85.4 fL (80.0-100.0); MONOCYTES 7.4 % (1.0-8.0); PLATELET COUNT 444 thou/uL (150-400); POLYS 61.2 % (36.0-66.0); RBC 3.91 mil/uL (4.20-5.00); RDW 13.9 % (10.5-14.5); WBC 15.5 thou/uL (4.0-11.0)
[2019-12-11 19:59] LABS: ANION GAP 11 mmol/L (7-16); BUN 25 mg/dL (7-18); CALCIUM 9.1 mg/dL (8.5-10.1); CHLORIDE 100 mmol/L (98-107); CO2 24 mmol/L (21-32); CREATININE 1.4 mg/dL (0.6-1.0); GLUCOSE 337 mg/dL (74-106); POTASSIUM 4.4 mmol/L (3.5-5.1); SODIUM 135 mmol/L (136-145)
[2019-12-11 20:04] LABS: DIRECT BILIRUBIN 0.1 mg/dL (<0.1-0.2); TOTAL BILIRUBIN 0.3 mg/dL (0.2-1.0); TOTAL PROTEIN 6.9 g/dL (6.4-8.2)
[2019-12-11 20:09] LABS: TROPONIN-I <0.06 ng/mL (<0.06)
[2019-12-11 22:10] VITALS: BP 127/51
[2019-12-11 22:12] VITALS: BP 127/51
[2019-12-11] MEDS ORDERED: ASA81BEC PO (22:12)
[2019-12-11] MEDS ORDERED: LISINOPRIL2.5 MG PO (22:15)
[2019-12-11 22:45] VITALS: BP 148/70
--- NOTE | 2019-12-12 02:06 | NUR ---
PATIENT TRANSFERRED FROM ED AND ARRIVED ON FLOOR AT APPROXIMATELY 2240. ADMISSION ASSESSMENT/HX COMPLETED. PATIENT DENYING CHEST PAIN. PATIENT STATES SHE IS SEEING WOUND CARE FOR SORE ON RIGHT BIG TOE. PATIENT STATES SHE HAS A COLLAGEN DRESSIING PLACE. 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 OBTAINED ORDERS FROM FOR HS MEDICATION AT PATIENT'S REQUEST. PATIENT NPO AT MIDNIGHT.
[2019-12-12 04:45] VITALS: BP 145/84
--- NOTE | 2019-12-12 07:06 | EKG ---
[facility] [place] [address] ELECTROCARDIOGRAM REPORT Name: JUNE RUBIN Room #: 216- ADM IN M.R.#: [id number] Admission: 12/11/19 Attend Phys: Emmanuel Epperson MD Discharge: Date of : 56 Report #: [id number] THIS REPORT FOR: cc: Emmanuel Epperson MD, Neal A. MD Santiago, Patrick MD [facility] ~ THIS REPORT FOR: //name// [facility] ED Test Date: 2019-12-11 Test Time: 19:41:22 Pat Name: JUNE RUBIN Department: Room: 216 Gender: F Copyright Manager: brissa : 1960 Requested By: Colt Osborn Order Number: [id number] MD: Elvin Sheehan Measurements Intervals [place] Rate: 60 P: 37 MA: 179 QRS: -19 QRSD: 98 T: 24 QT: 429 QTc: 429 Interpretive Statements Sinus rhythm Borderline left axis deviation Compared to ECG 12/17/2017 16:20:43 Atrial fibrillation no longer present Electronically Signed On 12-12-2019 7:05:55 CDT by Elvin Sheehan [email or web address] <ELECTRONICALLY SIGNED> By: Elvin Sheehan MD, FACC 12/12/19704 40 40 Elvin Sheehan MD, FAC /EPI
--- NOTE | 2019-12-12 08:20 | EKG ---
[facility] [place] [address] ELECTROCARDIOGRAM REPORT Name: JUNE RUBIN Room #: 216- ADM IN M.R.#: [id number] Admission: 12/11/19 Attend Phys: Emmanuel Epperson MD Discharge: Date of : 56 Report #: [id number] THIS REPORT FOR: cc: Emmanuel Epperson MD, Neal A. 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: CHUYITA : 1960 Requested By: Giselle Hopper Order Number: [id number] MD: Elvin Sheehan Measurements Intervals [place] Rate: 61 P: 17 CA: 186 QRS: -6 QRSD: 103 T: 49 QT: 403 QTc: 406 Interpretive Statements Sinus rhythm Borderline repolarization abnormality Compared to ECG 12/11/2019 19:41:22 No significant changes Electronically Signed On 12-12-2019 8:20:19 CDT by Elvin Sheehan [email or web address] <ELECTRONICALLY SIGNED> By: Elvin Sheehan MD, FACC 12/12/1920 0743 0743 Elvin Sheehan MD, [facility] /EPI
[2019-12-12 08:30] VITALS: BP 142/80
[2019-12-12 08:50] LABS: ANION GAP 7 mmol/L (7-16); BUN 22 mg/dL (7-18); CALCIUM 8.9 mg/dL (8.5-10.1); CHLORIDE 102 mmol/L (98-107); CO2 28 mmol/L (21-32); CREATININE 1.4 mg/dL (0.6-1.0); GLUCOSE 306 mg/dL (74-106); POTASSIUM 4.1 mmol/L (3.5-5.1); SODIUM 137 mmol/L (136-145)
[2019-12-12 09:04] LABS: CHOLESTEROL 131 mg/dL (<200); HDL CHOLESTEROL 41 mg/dL (>40); LDL CHOLESTEROL 69 mg/dL (<100); TC:HDL 3.2 Ratio (Not establshd); TRIGLYCERIDE 106 mg/dL (<150); VLDL 21 mg/dL (<40)
--- NOTE | 2019-12-12 11:20 | CATHLAB ---
[facility] [place] [address] INVASIVE PROCEDURE REPORT Name: JUNE RUBIN Room #: 216-P ADM IN M.R.#: [id number] Admission: 12/11/19 Attend Phys: Emmanuel Epperson MD Discharge: Date of : 56 Report #: [id number] THIS REPORT FOR: cc: Emmanuel Epperson MD, Neal A. MD Park, Jin S. MD ~ APPROVED REPORT Study performed: 12/12/2019 08:03:19 Patient Details Patient Status: In-Patient Room #: The patient is a 59 year-old female Event Personnel Apolinar Pennington Environmental Science Program Director, Bobby Paul RN RN, Vickie Flor RTR, CHECO Scrub, Eber Webb RTR Scrub, Debbi Pérez RTR Monitor Procedures Performed Art Access - R femoral artery* Left Heart Cath w/or w/o Coronaries 5403559 [facility] 89041 Initial Mod Sed Same Phys/QHP Gr 024071 12141 Mod Sed Same Phys/QHP Ea 754892 Hemostasis with Manual pressure Indication Dyspnea, Unstable angina , Chest pain Risk Factors HypercholesterolemiaPhysical Activity, Diabetes Procedure Narrative The Right Groin^ was infiltrated with 1% Lidocaine subcutaneous anesthesia. A PINNACLE 4FR Sheath #[id number] sheath was inserted into the RFA^. Coronary angiography was performed using coronary diagnostic catheters. The right coronary system was accessed and visualized with a JR4 catheter. The left coronary system was accessed and visualized with a JL4 catheter. The left ventricle was accessed and visualized with a PIGTAIL catheter. Left ventriculogram was performed in 30 degree projection. Hemostasis was obtained with manual pressure following sheath removal without any complications. The patient tolerated the procedure well and there were no complications associated with the procedure. There was no hematoma. [facility] [place] [address] INVASIVE PROCEDURE REPORT Name: DAYANARAJAYAJUNE Room #: 216-P [facility] IN ..#: [id number] Admission: 12/11/19 Attend Phys: Emmanuel Epperson, Discharge: Date of : 56 Report #: [id number] Intraoperative Conscious Sedation Sedation start time: 928 Case end Time: 1005 Fentanyl 100 mcg Versed 2 mg Fluoro Time: 4.20 minutes Dose: DAP 5942.00 cGycm2 1412 mGy Contrast Type and Amount: Visipaque 90 ml Coronary Angiography The patient's coronary anatomy is right dominant. Diagnostic Cath Left Main Left main artery is a large-caliber vessel, patent with no flow-limiting lesions. LAD The LAD is a moderate-sized caliber vessel with a severe, discrete stenosis in the proximal segment, 95%. There are borderline stenoses in the mid and distal segments. Diagonal 1 There is a severe occlusion in the ostium, 70%. Circumflex Left circumflex artery is a moderate-sized caliber vessel, with a moderate stenosis proximally. OM1 There is a severe occlusion in the proximal segment, 70%. OM2 This is a small to moderate-sized caliber vessel, patent with no flow-limiting lesions. OM3 This is a moderate-sized caliber vessel, patent with no flow-limiting lesions. Right Coronary The RCA is a dominant vessel with mild to moderate diffuse disease in the midsegment. R PDA This is a moderate-sized caliber vessel, patent with no flow-limiting lesions. RPLV This is a moderate-sized caliber vessel, with a severe stenosis at the ostium, 80%. Left Ventriculography The left ventricle is normal in size with Decreased contractility. The left ventricular ejection fraction is estimated to be 40-45%. Left ventricular wall motion abnormalities are present. There is hypokinesis of the mid to apical anterior wall. Hemodynamics The aortic pressure is 111/59 mmHg with a mean of 82 mmHg. The left ventricular pressure is 122/13 mmHg with a mean of mmHg. The left ventricular end diastolic pressure is 24 mmHg. [facility] [address] [place] [address] INVASIVE PROCEDURE REPORT Name: JUNE RUBIN Room #: 216-P [facility] IN M.R.#: [id number] Admission: 12/11/19 Attend Phys: Emmanuel Epperson, Discharge: Date of : 56 Report #: [id number] Conclusion 1. There is severe multivessel coronary artery disease. 2. There is mild to moderate segmental LV dysfunction. 3. Recommend guideline directed medical therapy and CV surgical consultation. <ELECTRONICALLY SIGNED> By: Apolinar Pennington MD 12/12/199 18 18 Apolinar Pennington MD /INF
[2019-12-12 11:59] LABS: ABSOLUTE NEUTROPHILS 7.4 thou/uL (1.4-8.2); BASOPHILS 0.4 % (0.0-2.0); HEMATOCRIT 32.9 % (37.0-47.0); HEMOGLOBIN 10.8 gm/dL (12.0-15.0); LYMPHOCYTES 23.1 % (24.0-44.0); MCH 28.2 pg (26.0-34.0); MCHC 32.8 g/dL (28.0-37.0); MCV 86.1 fL (80.0-100.0); MONOCYTES 6.1 % (1.0-8.0); PLATELET COUNT 422 thou/uL (150-400); POLYS 67.4 % (36.0-66.0); RBC 3.82 mil/uL (4.20-5.00); RDW 14.6 % (10.5-14.5); WBC 10.9 thou/uL (4.0-11.0)
[2019-12-12 12:11] LABS: CALCIUM 8.8 mg/dL (8.5-10.1); CREATININE 1.4 mg/dL (0.6-1.0); POTASSIUM 4.4 mmol/L (3.5-5.1)
[2019-12-12 12:19] LABS: ALBUMIN 2.8 g/dL (3.4-5.0); TOTAL BILIRUBIN 0.4 mg/dL (0.2-1.0); TOTAL PROTEIN 6.3 g/dL (6.4-8.2)
[2019-12-12 12:22] LABS: APTT 29.3 Seconds (24.5-32.8); PROTIME 10.2 Seconds (9.3-11.4)
[2019-12-12 13:00] VITALS: BP 129/54
--- NOTE | 2019-12-12 13:10 | 2DMMODE ---
[facility] [place] [address] 2 D/M-MODE ECHOCARDIOGRAM Name: JUNE RUBIN Room #: 216-P ADM IN M.R.#: [id number] Admission: 12/11/19 Attend Phys: Emmanuel Epperson MD Discharge: Date of : 56 Report #: [id number] THIS REPORT FOR: cc: Emmanuel Epperson MD, Neal A. MD Lundgren,Zacarias Hamilton MD [facility] ~ APPROVED REPORT Study performed: 12/12/2019 12:22:00 EXAM: Comprehensive 2D, Doppler, and color-flow Echocardiogram Patient Location: Bedside Room #: 216 Status: routine BSA: 2.27 HR: 59 bpm BP: 142/80 mmHg Rhythm: NSR Other Information Study Quality: Good Indications Chest pain. Pre-Op CABG. DM, HTN, HLP. 2D Dimensions RVDd: 35.93 mm IVSd: 14.00 (7-11mm) LVOT Diam: 20.61 (18-24mm) LVDd: 52.03 mm PWd: 11.48 (7-11mm) Ascending Ao: 34.92 (22-36mm) LVDs: 42.04 (25-40mm) Aortic Root: 32.83 mm Volumes Left Atrial Volume (Systole) Single Plane 4CH: 52.02 mL Single Plane 2CH: 72.97 mL LA ESV Index: 30.00 mL/m2 Aortic Valve AoV Peak Addison.: 1.44 m/s AO Peak Gr.: 8.32 mmHg LVOT Max P.31 mmHg LVOT Max V: 1.04 m/s COLTON Vmax: 2.40 cm2 [facility] [address] [place] [address] 2 D/M-MODE ECHOCARDIOGRAM Name: JUNE RUBIN Room #: 216-P [facility] IN [facility]#: [id number] Admission: 12/11/19 Attend Phys: Emmanuel Epperson, Discharge: Date of : 56 Report #: [id number] Mitral Valve E/A Ratio: 1.3 MV Decel. Time: 205.96 ms MV E Max Addison.: 0.99 m/s MV A Addison.: 0.77 m/s MV PHT: 59.73 ms IVRT: 69.20 ms Pulmonary Valve PV Peak Addison.: 0.98 m/s PV Peak Gr.: 3.86 mmHg Pulmonary Vein P Vein S: 0.58 m/s P Vein A: 0.34 m/s P Vein D: 0.38 m/s P Vein A Dur.: 152.2 msec P Vein S/D Ratio: 1.53 Tricuspid Valve TR Peak Addison.: 2.53 m/s RAP Estimate: 5.00 mmHg TR Peak Gr.: 26.00 mmHg PA Pressure: 31.00 mmHg Left Ventricle The left ventricle is normal size. There is normal left ventricular wall thickness. Left ventricular systolic function is mildly decreased. Distal septal and inferoapical hypokinesis. LVEF is 45-50%. Moderate diastolic dysfunction is present (pseudonormal filling). Right Ventricle The right ventricle is normal size. The right ventricular systolic function is normal. Atria The left atrium size is normal. The right atrium size is normal. Aortic Valve The aortic valve is normal in structure. No aortic regurgitation is present. There is no aortic valvular stenosis. Mitral Valve Mild mitral annular calcification Mild mitral regurgitation. No evidence of mitral valve stenosis. Tricuspid Valve [facility] [address] [address] 2 D/M-MODE ECHOCARDIOGRAM Name: JUNE RUBIN Room #: 216-P [facility] IN .R.#: [id number] Admission: 12/11/19 Attend Phys: Emmanuel Epperson, Discharge: Date of : 56 Report #: [id number] The tricuspid valve is normal in structure. Mild tricuspid regurgitation. Estimated PAP is 30-35mmHg. Pulmonic Valve The pulmonary valve is normal in structure. There is no pulmonic valvular regurgitation. Great Vessels The aortic root is normal in size. The ascending aorta is normal in size. IVC is normal in size and collapses >50% with inspiration. Pericardium There is no pericardial effusion. <Conclusion> Left ventricular systolic function is mildly decreased. Distal septal and inferoapical hypokinesis. LVEF 45-50%. Moderate diastolic dysfunction The aortic valve is normal in structure. No aortic regurgitation or stenosis Mild mitral annular calcification. Mild mitral regurgitation. Mild tricuspid regurgitation. Estimated pulmonary artery pressure of 30-35mmHg. There is no pericardial effusion. <ELECTRONICALLY SIGNED> By: Zacarias Mireles MD, FACC 12/12/19 131 09 09 Zacarias Mireles MD, FACC /INF
--- NOTE | 2019-12-12 14:30 | NUR ---
Chart reviewed and case discussed with the care team. Pt admitted with chest pain and cardiac workup resulting in recommendation for CABGx3. 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 She lives alone and has chronic health issues including dm and wound on rt big toe. Her pcp is Dr. Epperson and she has ins through her employer. Will eval for dc planning needs postop heart surgery for possible hh or/ rehab referrals. No weekend discharge anticipated.
[2019-12-12 17:27] VITALS: BP 116/66
--- NOTE | 2019-12-12 18:17 | NUR ---
ASSESSMENT CHARTED - MEDS PER APR - ACCUCHECKS COVERED PER SSI. ZACH DIET AND FLUIDS. VSS AND GROIIN SITE STABLE POST CATH - AND POST AMBULATION - SEEN BY DR MEMBRENO TODAY IN REGARDS TO CABG X 3 ON MON AM - PERMITS SIGNED FOR SURGERY. PT UP TO THE CHAIR - AMBULATING TO THE BATHROOM - NO CO'S OF PAIN OR NAUSEA. SEEN BY WOUND CARE FOR TOE INJURY. IV FLUIDS COMPLETED - NO CO'S AT THE PRESENT TIME.
[2019-12-12 20:55] VITALS: BP 137/77
--- NOTE | 2019-12-13 04:24 | NUR ---
ASSUMED CARE FROM DAY SHIFT PT SITTING UP IN BED , ASSESSMENT COMPLETED, RIGHT GROIN WITH DRY CLEAN GAUZE, DENIES CHEST PAIN. PO MEDICATION GIVEN AND PAIN PILL GIVEN FOR HEADACHE. PT RESTED WELL THROUGHOUT HOURLY ROUNDS WILL CONITINUE CURRENT PLAN OF CARE.
[2019-12-13 04:45] VITALS: BP 103/56
[2019-12-13 09:00] VITALS: BP 150/85
[2019-12-13] MEDS ORDERED: OXYBUTYNIN ER 55 M1 PO (09:23)
[2019-12-13] MEDS ORDERED: DULOXETINE HCL30 MG PO (09:23)
[2019-12-13] MEDS ORDERED: REGLAN 5 MG TAB5 MG PO (09:23)
--- NOTE | 2019-12-13 10:03 | EKG ---
[facility] [place] [address] ELECTROCARDIOGRAM REPORT Name: JUNE RUBIN Room #: 216- ADM IN M.R.#: [id number] Admission: 12/11/19 Attend Phys: Emmanuel Epperson MD Discharge: Date of : 56 Report #: [id number] THIS REPORT FOR: cc: Emmanuel Epperson MD, Neal A. MD Lundgren,Zacarias Hamilton MD [facility] ~ THIS REPORT FOR: //name// [facility] Test Date: 2019-12-13 Test Time: 09:22:06 Pat Name: JUNE RUBIN Department: Room: 216 Gender: F Editor House Organ: Reema MENDOZA : 1960 Requested By: Zacarias Mireles Order Number: [id number] MD: Zacarias Mireles Measurements Intervals [place] Rate: 66 P: 50 VA: 186 QRS: -8 QRSD: 88 T: 92 QT: 329 QTc: 345 Interpretive Statements Sinus rhythm Inferior infarct, old Nonspecific T wave abnormality Compared to ECG 12/12/2019 07:43:32 Inferior Q waves are more prominent Electronically Signed On 12-13-2019 10:03:30 CDT by Zacarias Mireles [email or web address] <ELECTRONICALLY SIGNED> By: Zacarias Mireles MD, FACC 12/13/19 1003 1 1 Zacarias Mireles MD, FACC /EPI
[2019-12-13 12:00] VITALS: BP 141/74
[2019-12-13 16:00] VITALS: BP 113/68
[2019-12-13 19:41] LABS: URINE BILIRUBIN NEGATIVE (Negative); URINE BLOOD TRACE (Negative); URINE CLARITY SL CLOUDY; URINE COLOR YELLOW; URINE GLUCOSE-RANDOM* 3+ (Negative); URINE KETONES NEGATIVE (Negative); URINE LEUKOCYTES-REFLEX TRACE (Negative); URINE PROTEIN (DIPSTICK) NEGATIVE (Negative); URINE SPECIFIC GRAVITY 1.015 (1.005-1.035); URINE UROBILINOGEN 0.2 E.U./dl (0.2-1.0)
[2019-12-13 19:43] LABS: URINE NITRITE-REFLEX POSITIVE (Negative)
[2019-12-13 19:50] LABS: BACTERIA-REFLEX >30 Many /HPF (None Seen)
[2019-12-13 19:51] LABS: CASTS None Seen /LPF (None Seen); CRYSTALS None Seen /LPF (None Seen); SQUAMOUS 0-3 Few /LPF (0-3); URINE RBC 0-2 Rare /HPF (0-2)
[2019-12-13 21:07] VITALS: BP 149/69
[2019-12-14 04:45] VITALS: BP 157/83
--- NOTE | 2019-12-14 04:46 | NUR ---
ASSESSMENT DOCUMENTED.PT BEEN RESTING IN NO ACUTE DISTRESS.AOX4.VSS.PAIN MEDS GIVEN FOR GENERALIZED PAIN W/RELIEF.PT DENIES ANY NEEDS.PT TO HAVE CABG ON SUNDAY.WILL CONT TO MONITOR PER POC.
[2019-12-14 07:30] VITALS: BP 129/65
--- NOTE | 2019-12-14 07:57 | NUR ---
ASSUMED CARE OF PT AT SHIFT CHANGE, SHE IS A&OX4, AMB STEADY TO RESTROOM, DID HAVE FALL PRIOR TO HOSPITALIZATION HENCE BRUISES ON LEFT SIDE OF FACE/EYE. SEE SEPARATE INTERVENTIONS FOR ASSESSMENTS. ENCOURAGE D PT TO USE CALL LIGHT FOR ANY NEEDS. REPORT OF IV BEING DISLODGED AND NO LONGER FUNCTIONING AND PT REFUSED HAVING ANOTHER IV PLACED, SAID SHE WANTED THE 'LINE IN THE NECK'. LET PT KNOW WE'D NEED TO START ANOTHER IV THIS A.M. WHEN ABLE, SHE ACQUIESCES. WILL CONTINUE TO MONITOR
--- NOTE | 2019-12-14 11:20 | EKG ---
[facility] [place] [address] ELECTROCARDIOGRAM REPORT Name: JUNE RUBIN Room #: 216- ADM IN M.R.#: [id number] Admission: 12/11/19 Attend Phys: Emmanuel Epperson MD Discharge: Date of : 56 Report #: [id number] THIS REPORT FOR: cc: Emmanuel Epperson MD, Neal A. MD Lundgren,Zacarias [place] MD [facility] ~ THIS REPORT FOR: //name// [facility] Test Date: 2019-12-14 Test Time: 07:21:28 Pat Name: JUNE RUBIN Department: Room: 216 Gender: F Director Dental Services: MARANDA : 1960 Requested By: Zacarias Mireles Order Number: [id number] MD: Zacarias Mireles Measurements Intervals [place] Rate: 60 P: 35 OR: 189 QRS: -8 QRSD: 99 T: 88 QT: 427 QTc: 427 Interpretive Statements Sinus rhythm Inferior infarct, old Abnormal T, consider ischemia, anterior leads Baseline wander in lead(s) V2 Compared to ECG 12/13/2019 09:22:06 No significant change was found Electronically Signed On 12-14-2019 11:19:57 CDT by Zacarias Mireles [email or web address] <ELECTRONICALLY SIGNED> By: Zacarias Mireles MD, FACC 12/14/19 1119 0 0 Zacarias Mireles MD, FACC /EPI
[2019-12-14 11:35] VITALS: BP 124/65
[2019-12-14 16:18] VITALS: BP 124/58
[2019-12-14] MEDS ORDERED: BYSTOLIC10 MG PO (20:02)
[2019-12-14] MEDS ORDERED: METHOCARBAMOL500 M2 PO (20:04)
[2019-12-14] MEDS ORDERED: LORCET 5-325 M1 EACH PO (20:05)
[2019-12-14] MEDS ORDERED: LIVALO4 MG PO (20:06)
[2019-12-14] MEDS ORDERED: SYMBICORT160 MCG/4. INH (20:08)
[2019-12-14 21:05] VITALS: BP 130/68
[2019-12-14 23:59] VITALS: BP 116/64
[2019-12-15] VITALS (20 sets, daily range): BP systolic 102–128; BP diastolic 56–77
--- NOTE | 2019-12-15 07:32 | NUR ---
ASSUMED CARE OF PATIENT AT 1900; AOX4/ANXIOUS AT TIMES; VSS/NO C/O OF CHEST PAIN; NAUSEA/ VOMITING WITH COMPLETE RESOLVE FROM MEDICATION; UP AD ZONIA TO BATHROOM; BATHS/CARE PER PRE-PROCEDURE PROTOCOL; TRANSFERED TO SOLID WASTE MANAGEMENT ENGINEER IN AM FOR SCHEDULED OPEN HEART SX.
[2019-12-15 13:24] LABS: HEMATOCRIT 21.4 % (37.0-47.0); HEMOGLOBIN 7.1 gm/dL (12.0-15.0); MCH 28.5 pg (26.0-34.0); MCHC 33.1 g/dL (28.0-37.0); MCV 86.2 fL (80.0-100.0); RBC 2.48 mil/uL (4.20-5.00); RDW 14.2 % (10.5-14.5); WBC 8.7 thou/uL (4.0-11.0)
[2019-12-15 13:39] LABS: APTT 30.1 Seconds (24.5-32.8); FIBRINOGEN 298.9 mg/dL (210-360); INR 1.3
[2019-12-15 13:58] LABS: POC BE 2 mmol/L (-2.0 to +3.0); POC GLUCOSE 209 mg/dL (70-99); POC HCO3 26.1 mmol/L (22.0-26.0); POC HEMOGLOBIN 9.5 g/dL (12.0-15.0); POC POTASSIUM 3.3 mmol/L (3.5-5.1); POC SODIUM 137 mmol/L (136-145); POC pCO2 38.5 mmHg (35.0-45.0); POC pH 7.439 (7.360-7.450)
[2019-12-15 13:58] LABS: POC BE 3 mmol/L (-2.0 to +3.0); POC CA IONIZED 5.1 mg/dL (4.5-5.3); POC GLUCOSE 228 mg/dL (70-99); POC HCO3 27.4 mmol/L (22.0-26.0); POC HEMOGLOBIN 10.5 g/dL (12.0-15.0); POC POTASSIUM 4.3 mmol/L (3.5-5.1); POC SODIUM 136 mmol/L (136-145); POC pCO2 40.6 mmHg (35.0-45.0); POC pH 7.437 (7.360-7.450)
[2019-12-15 13:59] LABS: POC BE 4 mmol/L (-2.0 to +3.0); POC CA IONIZED 4.7 mg/dL (4.5-5.3); POC GLUCOSE 166 mg/dL (70-99); POC HCO3 27.8 mmol/L (22.0-26.0); POC HEMOGLOBIN 8.8 g/dL (12.0-15.0); POC POTASSIUM 3.5 mmol/L (3.5-5.1); POC SODIUM 139 mmol/L (136-145); POC pCO2 40.8 mmHg (35.0-45.0); POC pH 7.441 (7.360-7.450)
[2019-12-15 13:59] LABS: POC BE 3 mmol/L (-2.0 to +3.0); POC CA IONIZED 4.7 mg/dL (4.5-5.3); POC GLUCOSE 154 mg/dL (70-99); POC HCO3 27.3 mmol/L (22.0-26.0); POC HEMOGLOBIN 8.2 g/dL (12.0-15.0); POC POTASSIUM 3.7 mmol/L (3.5-5.1); POC SODIUM 139 mmol/L (136-145); POC pCO2 41.1 mmHg (35.0-45.0)
[2019-12-15 13:59] LABS: POC BE 2 mmol/L (-2.0 to +3.0); POC CA IONIZED 4.7 mg/dL (4.5-5.3); POC GLUCOSE 143 mg/dL (70-99); POC HCO3 26.8 mmol/L (22.0-26.0); POC HEMOGLOBIN 7.5 g/dL (12.0-15.0); POC POTASSIUM 3.8 mmol/L (3.5-5.1); POC SODIUM 138 mmol/L (136-145); POC pCO2 42.3 mmHg (35.0-45.0); POC pH 7.409 (7.360-7.450)
[2019-12-15 13:59] LABS: POC BE -1 mmol/L (-2.0 to +3.0); POC CA IONIZED 5.1 mg/dL (4.5-5.3); POC GLUCOSE 130 mg/dL (70-99); POC HCO3 23.2 mmol/L (22.0-26.0); POC HEMOGLOBIN 7.5 g/dL (12.0-15.0); POC POTASSIUM 3.8 mmol/L (3.5-5.1); POC SODIUM 140 mmol/L (136-145); POC pCO2 34.9 mmHg (35.0-45.0)
[2019-12-15 13:59] LABS: POC BE 2 mmol/L (-2.0 to +3.0); POC CA IONIZED 4.6 mg/dL (4.5-5.3); POC GLUCOSE 177 mg/dL (70-99); POC HCO3 26.3 mmol/L (22.0-26.0); POC HEMOGLOBIN 8.8 g/dL (12.0-15.0); POC POTASSIUM 3.5 mmol/L (3.5-5.1); POC SODIUM 137 mmol/L (136-145); POC pCO2 37.4 mmHg (35.0-45.0); POC pH 7.455 (7.360-7.450)
[2019-12-15 13:59] LABS: POC BE 2 mmol/L (-2.0 to +3.0); POC CA IONIZED 4.7 mg/dL (4.5-5.3); POC GLUCOSE 142 mg/dL (70-99); POC HEMOGLOBIN 7.5 g/dL (12.0-15.0); POC POTASSIUM 4.2 mmol/L (3.5-5.1); POC SODIUM 139 mmol/L (136-145); POC pCO2 43.2 mmHg (35.0-45.0); POC pH 7.404 (7.360-7.450)
[2019-12-15 13:59] LABS: POC BE 2 mmol/L (-2.0 to +3.0); POC CA IONIZED 5.2 mg/dL (4.5-5.3); POC GLUCOSE 135 mg/dL (70-99); POC HCO3 26.9 mmol/L (22.0-26.0); POC HEMOGLOBIN 7.5 g/dL (12.0-15.0); POC POTASSIUM 3.9 mmol/L (3.5-5.1); POC SODIUM 139 mmol/L (136-145); POC pCO2 44.2 mmHg (35.0-45.0); POC pH 7.392 (7.360-7.450)
[2019-12-15 13:59] LABS: POC BE -3 mmol/L (-2.0 to +3.0); POC CA IONIZED 5.1 mg/dL (4.5-5.3); POC GLUCOSE 126 mg/dL (70-99); POC HCO3 21.6 mmol/L (22.0-26.0); POC HEMOGLOBIN 8.8 g/dL (12.0-15.0); POC POTASSIUM 3.8 mmol/L (3.5-5.1); POC SODIUM 140 mmol/L (136-145); POC pH 7.438 (7.360-7.450)
--- NOTE | 2019-12-15 14:52 | NUR ---
1445 ARRIVE TO ICU FROM OR WITH SURGERY STAFF, ANETHSTESIA AND SURGEON. PLACED ON VIGILANCE MONITOR. STAFF AIR TACTICAL OFFICER FAULT READING, FLUSHED PA LINE WITH 10CC NS. CORRECTED THE ISSUE, STAFF AIR TACTICAL OFFICER AND [facility] READINGS AVAILABLE. LINA HOLLOWAY APPLIED. WILL ATTEMP TO CALL FAMILY.
--- NOTE | 2019-12-15 14:53 | NUR ---
Nutrition: Received consult for education. CABG today. Followup when out of ICU/closer to D/C.
[2019-12-15 14:54] LABS: HEMATOCRIT 27.2 % (37.0-47.0); HEMOGLOBIN 8.9 gm/dL (12.0-15.0); MCH 27.7 pg (26.0-34.0); MCHC 32.8 g/dL (28.0-37.0); MCV 84.5 fL (80.0-100.0); RBC 3.22 mil/uL (4.20-5.00); RDW 14.1 % (10.5-14.5)
[2019-12-15 14:59] LABS: CALCIUM 8.5 mg/dL (8.5-10.1); POTASSIUM 4.1 mmol/L (3.5-5.1)
[2019-12-15 15:00] LABS: MAGNESIUM 2.3 mg/dL (1.8-2.4)
[2019-12-15 15:02] LABS: BE(vivo) -3.2 mmol/L (-2 to +3); HCO3 21.2 mmol/L (22.0-26.0); PCO2 35.1 mmHg (35.0-45.0); pH 7.398 (7.360-7.450); sO2 92.9 % (92.0-98.0)
[2019-12-15 15:06] LABS: APTT 32.9 Seconds (24.5-32.8); INR 1.1; PROTIME 11.4 Seconds (9.3-11.4)
--- NOTE | 2019-12-15 22:00 | NUR ---
Pt remains intubated at this time, while she does awaken and follow commands, she cannot left her head from the pillow and rarely overbreathes the vent. Her vitals are stable, chest tubes are draining well, and her UO may be slowing, will continue to monitor and provide an additional IVF's, as needed.
[2019-12-16] VITALS (21 sets, daily range): BP systolic 103–157; BP diastolic 52–88
[2019-12-16 01:40] LABS: BE(vivo) -3.3 mmol/L (-2 to +3); HCO3 21.6 mmol/L (22.0-26.0); PCO2 37.9 mmHg (35.0-45.0); PO2 89.8 mmHg (80.0-100.0); pH 7.373 (7.360-7.450); sO2 96.7 % (92.0-98.0)
--- NOTE | 2019-12-16 01:47 | NUR ---
CPaP trial started at 0100, ABG was collected, readings were within parameters, and pt was extubated w/o difficulty at 0147. She was placed on face mask at 40%, sats have been 97% and above. Her lung sounds are less coarse than previously noted, but she continues to have coarseness, with exhalation. Respiratory rate has been from 16 bpm to 20 bpm, non-labored. She has her heart pillow and is expectorating a small quantity of sputum. Her PA waveform was irregular, the line is taped in place, (from the start of the shift), so it unlikely that the line was dislodged. All connections were checked, the line was flushed well and the readings are comparable to previous numbers. Will continue to monitor.
[2019-12-16 05:33] LABS: CALCIUM 8.5 mg/dL (8.5-10.1); CREATININE 1.1 mg/dL (0.6-1.0); MAGNESIUM 2.4 mg/dL (1.8-2.4); POTASSIUM 4.4 mmol/L (3.5-5.1)
[2019-12-16 05:50] LABS: HEMATOCRIT 25.6 % (37.0-47.0); HEMOGLOBIN 8.3 gm/dL (12.0-15.0); MCHC 32.6 g/dL (28.0-37.0); MCV 85.9 fL (80.0-100.0); RBC 2.97 mil/uL (4.20-5.00); RDW 14.4 % (10.5-14.5); WBC 12.9 thou/uL (4.0-11.0)
--- NOTE | 2019-12-16 09:53 | EKG ---
[facility] [place] [address] ELECTROCARDIOGRAM REPORT Name: JUNE RUBIN Room #: 248-P ADM IN M.R.#: [id number] Admission: 12/11/19 Attend Phys: Emmanuel Epperson MD Discharge: Date of : 56 Report #: [id number] THIS REPORT FOR: cc: Emmanuel Epperson MD, Neal A. MD Lammoglia, Francisco J. MD ~ THIS REPORT FOR: //name// [facility] Test Date: 2019-12-15 Test Time: 16:07:46 Pat Name: JUNE RUBIN Department: Room: 248 Gender: F Electric Cutter Operator: CHUYITA : 1960 Requested By: Adrian Cline Order Number: [id number] MD: Ganesh Godwin Measurements Intervals [place] Rate: 80 P: 0 [place]: 75 QRS: 34 QRSD: 84 T: 148 QT: 322 QTc: 372 Interpretive Statements Sinus rhythm Low voltage, extremity and precordial leads Anteroseptal infarct, old Compared to ECG 12/14/2019 07:21:28 No significant changes Electronically Signed On 12-16-2019 9:53:08 CDT by Ganesh Godwin [email or web address] <ELECTRONICALLY SIGNED> By: Ganesh Godwin MD 12/16/19 0953 1607 1607 Ganesh Godwin MD /EPI
--- NOTE | 2019-12-16 09:55 | EKG ---
[facility] [place] [address] ELECTROCARDIOGRAM REPORT Name: JUNE RUBIN Room #: 248- ADM IN M.R.#: [id number] Admission: 12/11/19 Attend Phys: Emmanuel Epperson MD Discharge: Date of : 56 Report #: [id number] THIS REPORT FOR: cc: Emmanuel Epperson MD, Neal A. MD Lammoglia, Francisco J. MD ~ THIS REPORT FOR: //name// [facility] Test Date: 2019-12-16 Test Time: 07:35:16 Pat Name: JUNE RUBIN Department: Room: 248 P Gender: F Aquatic Director: EVAN : 1960 Requested By: Adrian Cline Order Number: [id number] MD: Ganesh Godwin Measurements Intervals [place] Rate: 72 P: [place]: QRS: -1 QRSD: 86 T: 63 QT: 405 QTc: 444 Interpretive Statements Sinus rhythm Borderline low voltage, extremity leads Compared to ECG 12/15/2019 16:07:46 No significant changes Electronically Signed On 12-16-2019 9:54:49 CDT by Ganesh Godwin [email or web address] <ELECTRONICALLY SIGNED> By: Ganesh Godwin MD 12/16/19 0954 4 4 Ganesh Godwin MD /EPI
--- NOTE | 2019-12-16 17:48 | NUR ---
Case reviewed. PT/OT evaling post op CABG. Pt may be a good candidate for 5N acute rehab. Messages sent to the PCP and CTS for when she is ready. Pt is postop day one today. Will follow.
--- NOTE | 2019-12-16 18:47 | NUR ---
ASSUMED CARE @ 0700 12/16/19, PT ASSESSMENTS AND VSS COMPLETE PER ICU PRT. PT ENCOUNTERED IN THE CHAIR VERY CONFUSED, BUT ABLE TO FOLLOW SIMPLE COMMANDS. DR MEMBRENO AND DANIS AT THE BEDSIDE THIS AM, ORDERS RECIEVE AND EXECUTED. PT UNABLE TO GET UP WITH PT, PT HAD TO BE LIFTED VIA DEANNA LIFT TO THE BED. RN DID NOT FEEL IT WAS APPROPRIATE TO D'C MEDIASTINAL CHEST TUBE BECAUSE PT HAS NOT GOTTEN UP ALL DAY. THIS IS PASSED ON TO THE RN PRIVATE DUTY. SISTER AT BEDSIDE DURING THE SHIFT.
[2019-12-17] VITALS (22 sets, daily range): BP systolic 119–163; BP diastolic 58–86
[2019-12-17 05:44] LABS: HEMATOCRIT 24.8 % (37.0-47.0); MCH 27.9 pg (26.0-34.0); MCHC 32.2 g/dL (28.0-37.0); MCV 86.5 fL (80.0-100.0); RBC 2.87 mil/uL (4.20-5.00); RDW 14.8 % (10.5-14.5); WBC 12.8 thou/uL (4.0-11.0)
[2019-12-17 05:53] LABS: CALCIUM 8.2 mg/dL (8.5-10.1); CREATININE 1.4 mg/dL (0.6-1.0); POTASSIUM 4.8 mmol/L (3.5-5.1)
--- NOTE | 2019-12-17 09:00 | NUR ---
DR. MEMBRENO AND NANCY GASTON PRESENT. UPDATED ON PT STATUS. RADIAL HEYDI AND IV FLUIDS DC'D. PULLING 500CC ON INCENTIVE SPIROMETER, WEAK, DRY NONPRODUCTIVE COUGH AND SPLINTING CHEST WITH HEART PILLOW. ACTIVE ROM TO ZEESHAN LEGS, SITTING IN BED IN CHAIR POSITION.
--- NOTE | 2019-12-17 10:14 | NUR ---
VASCULAR ACCESS CONSULTED FOR MIDLINE. PT'S LABS,MEDS,HX REVIEWED. DISCUSSED BENEFITS AND RISK OF MIDLINE WITH PT,VERBALIZED UNDERSTANDING AND GAVE CONSENT. RAMONA CEPHALIC WAS WIDELY PATENT WITH USG. 4FR POWER MIDLINE TRIMMED TO 15CM INSERTED TO 0CM WITH BRISK BR. ML RELEASED FOR IMMEDIATE USE TO REHAN AMAYA PER PROTOCOL.
--- NOTE | 2019-12-17 10:50 | NUR ---
MIDLINE PLACED BY NEL DING TEAM NURSE, THEN PT DOZED OFF TO SLEEP. AT 1030, PT UP TO CHAIR WITH PT/OT PRESENT (2-3 ASSIST), STEPS TAKEN FROM BED TO CHAIR, WELL TOLERATED. OT ASSISTED WITH PT PROVIDING HERSELF A BATH, THEN BRUSING HER TEETH. HER SISTER IS PRESENT PROVIDING SUPPORT.
--- NOTE | 2019-12-17 12:33 | NUR ---
[facility] hol[facility] in progress. The rehab liason is checking to see if [facility] is in network with the pt's ins plan as well.
--- NOTE | 2019-12-17 16:33 | NUR ---
5N CONSULT RECEIVED. Pt SEEN BY DR. KIMBERLY BROWN. Pt LIKELY WON'T BE READY FOR D/C UNTIL THIS WEEKEND. WILL CONTINUE TO FOLLOW AND SEE HOW Pt DOES WITH THERAPIES. Pt HAS BLUE CROSS OUT OF AREA INSURANCE. SEVERAL ATTEMPTS MADE BY THIS [employer]ER[employer] MANAGER WELL DANELLE FROM [place] [employer] TODAY TO CONTACT INSURANCE REGARDING COVERAGE/BENEFITS TO SEE IF 5N ACUTE REHAB UNIT IS IN NETWORK WITH Pt'S INSURANCE OR IF Pt HAS OON BENEFITS FOR 5N UNIT; UNABLE TO REACH ANYONE AT INSURANCE COMPANY REGARDING THIS INQUIRY. WILL PLAN TO TRY AGAIN TOMORROW.
--- NOTE | 2019-12-17 18:31 | NUR ---
BED IN CHAIR POSITION FOR EVENING MEAL. INCISIONAL CHEST DISCOMFORT IMPROVING WITH APAP/HYDROCODONE, ROOM AIR, SLOW PROGRESS WITH DEEP BREATHING/COUGH, USE OF INCENTIVE SPIROMETER WHILE SPLINTING HEART PILLOW. SR, PCT/MCT/PACING WIRES DC'D AND CHEST XRAY COMPLETED, ADEQUATE URINE OUTPUT PER PRICE. SINCE PT UP TO CHAIR ONLY ONCE AND A FEW SIDE STEPS WHEN TRANSFERRING EACH TIME, PRICE REMAINS INTACT. SISTER PRESENT IN AM AND EARLY AFTERNOON, PROVIDING SUPPORT.
[2019-12-18] VITALS (22 sets, daily range): BP systolic 85–185; BP diastolic 40–90
--- NOTE | 2019-12-18 06:45 | NUR ---
Patient progressing towards plan of care as evidenced by decreasing need for pain medication, she is alert and oriented, increasing strength. Plan of care is to continue to monitor patient status and increase stamina.
--- NOTE | 2019-12-18 11:12 | NUR ---
PATIENT IS A CANDIDATE FOR ACUTE REHAB. PATIENT'S INSURANCE CALLED TO SEE IF [facility] IS IN NETWORK WITH INSURANCE OR IF NOT, CHECK PATIENT'S OUT OF NETWORK BENEFITS. [facility] NOT IN NETWORK. OUT OF NETWORK BENEFITS ARE $7000.00 DEDUCTABLE AND 50% CO-INSURANCE AFTER DEDUCTABLE IF MET. BATTERY STARTER INFORMED AND WILL SEEK IN NETWORK FACILITY.
--- NOTE | 2019-12-18 11:39 | NUR ---
nenita called pt via her cell phone. no answer cm left message requesting a call back. nenita spoke with bedside nurse, they will try and find her a phone for her room. pt out of net work for 5n acute rehab. need to see if she would be ok with going to another acute rehab facility. will cont following as needed for dc needs.
--- NOTE | 2019-12-18 15:53 | HC ---
[facility] [place] [address] CONSULTATION Name: JUNE RUBIN Room #: 248-P ADM IN M.R.#: [id number] Admission: 12/11/19 Attend Phys: Emmanuel Epperson MD Discharge: Date of : 56 Report #: [id number] THIS REPORT FOR: cc: Emmanuel Epperson MD, Neal A. MD Althoff,Anton Camara MD ~ DATE OF SERVICE: 12/12/2019 CHIEF COMPLAINT: Right great toe ulceration. HISTORY OF PRESENT ILLNESS: This is a 59-year-old female patient with whom I am familiar from previous hospitalization, who was admitted to the hospital with unstable angina. She reports that she has been told that she is going to require coronary artery bypass surgery. During this hospitalization, she is feeling well at this time. She has an ulceration on right great toe, which has been present for quite some time, for which we have been following her. She denies significant pain associated with this at this time. PAST MEDICAL HISTORY: Positive for history of previous tonsillectomy, type 2 diabetes mellitus, irritable bowel syndrome, eczema and seasonal allergies. SOCIAL HISTORY: The patient admits to alcohol on special occasions. No history of tobacco or recreational drug use. FAMILY HISTORY: Noncontributory. MEDICATIONS: Include pantoprazole, fexofenadine, gabapentin, insulin, Janumet, enteric coated aspirin, lisinopril, ondansetron and Mucinex. ALLERGIES: DUST, MOLD AND SULFA. REVIEW OF SYSTEMS: CONSTITUTIONAL: The patient denies fever, chills or weight loss. NEUROLOGICAL: The patient denies focal weakness, numbness or tingling. EYES: The patient denies visual changes, redness, or drainage. ENT: The patient denies earache, nasal drainage, sore throat. CARDIOVASCULAR: The patient does complain of chest pain. Denies palpitations or diaphoresis. PULMONARY: The patient denies cough or shortness of breath. GASTROINTESTINAL: The patient denies nausea, vomiting, diarrhea or abdominal pain. ORTHOPEDIC: The patient has pants on extremities, notes the ulceration on the right great toe. Other systems in a 14-point review of systems are negative. [address] [address] CONSULTATION Name: JUNE RUBIN Room #: 248-P [facility] IN [facility]#: [id number] Admission: 12/11/19 Attend Phys: Emmanuel Epperson MD Discharge: Date of : 56 Report #: [id number] PHYSICAL EXAMINATION: VITAL SIGNS: At this time include temperature 37.3, pulse 55, respiratory rate 14, blood pressure 116/66. GENERAL: This is a well-developed, well-nourished female patient who appears to be in no distress. HEENT: Head normocephalic. Nose and throat are clear. NECK: Supple. LUNGS: Clear. HEART: Regular rhythm without murmur. ABDOMEN: Soft. Bowel sounds present. EXTREMITIES: Examination of the lower extremities demonstrates palpable distal pulses. She has ulceration on the plantar aspect of the right great toe. There is some dry stable eschar and some crusting, some of which peels away revealing intact epithelium. LABORATORY DATA: Sodium 137, potassium 4.1, chloride 102, CO2 of 28, BUN 22, creatinine 1.4, glucose 306, calcium is 8.9. White blood cell count is 10.9 with a hemoglobin of 10.8, Albumin is 3.0. CLINICAL IMPRESSION: 1. Diabetic foot ulceration to the right great toe. 2. Diabetes with peripheral neuropathy. 3. Coronary artery disease, pending further intervention. RECOMMENDATIONS: At this point in time, we recommend Betadine and dry gauze to the right great toe for the time being. We will continue to follow her here in the hospital. Continuation of current medications, nutritional support for maximizing wound healing. <ELECTRONICALLY SIGNED> By: Anton Luo MD 12/18/19 1553 0903 0930 Anton Luo MD /nt
--- NOTE | 2019-12-18 16:01 | NUR ---
ASSUMED CARE @ 0700 12/18/19, PT ASSESSMENTS AND VSS COMPLETE PER ICU PROTOCOL DR MEMBRENO AND DANIS CRUZ TO THE BEDSIDE THIS AM, ORDERS RECIEVED AND EXECUTED. PT ABLE TO WALK X 2 WITH PHYSICAL THERAPY, VSS STABLE DURING THIS PROCESS. DEE VALENTE'Yovana, NO COMPLICATIONS NOTED. CCU ORDERS PLACED. SISTER OF PATIENT @ BEDSIDE @ APPROXIMATELY 1440.
[2019-12-18 16:27] LABS: ALBUMIN 2.2 g/dL (3.4-5.0); CALCIUM 8.6 mg/dL (8.5-10.1); CREATININE 1.3 mg/dL (0.6-1.0); PHOSPHORUS 2.8 mg/dL (2.5-4.9); POTASSIUM 4.9 mmol/L (3.5-5.1)
--- NOTE | 2019-12-18 16:30 | NUR ---
[facility] called they are in network with her insurance and will need to seek for auth. per cardiology anticipate dc sunday12/22/2019. will need to provide updated notes from pt and ot, so can start auth for sunday. encourage gonzalo to work more with therapy and on adls.
[2019-12-19] VITALS (10 sets, daily range): BP systolic 122–174; BP diastolic 48–94
--- NOTE | 2019-12-19 03:28 | NUR ---
ASSUMED OT CARE AT 1900. VSS. PT A&0X4. PAIN MANAGED PRN, UP X2 ASSIST TO BEDSIDE COMMODE, PT ENCOUAGED TO DO ACTIVITY. SHE IS STABLE NO ISSUES OVERNIGHT WILL CONTINUE TO MONITOR
[2019-12-19 06:02] LABS: HEMATOCRIT 25.3 % (37.0-47.0); HEMOGLOBIN 8.2 gm/dL (12.0-15.0); MCHC 32.5 g/dL (28.0-37.0); MCV 85.9 fL (80.0-100.0); RBC 2.95 mil/uL (4.20-5.00); RDW 14.2 % (10.5-14.5); WBC 12.5 thou/uL (4.0-11.0)
[2019-12-19 06:30] LABS: CALCIUM 9.1 mg/dL (8.5-10.1); CREATININE 1.1 mg/dL (0.6-1.0); POTASSIUM 4.7 mmol/L (3.5-5.1)
--- NOTE | 2019-12-19 07:45 | EKG ---
[facility] [place] [address] ELECTROCARDIOGRAM REPORT Name: JUNE RUBIN Room #: 248-P ADM IN M.R.#: [id number] Admission: 12/11/19 Attend Phys: Emmanuel Epperson MD Discharge: Date of : 56 Report #: [id number] THIS REPORT FOR: cc: Emmanuel Epperson MD, Neal A. MD Santiago, Patrick MD [facility] ~ THIS REPORT FOR: //name// [facility] Test Date: 2019-12-19 Test Time: 07:22:10 Pat Name: JUNE RUBIN Department: Room: 248 P Gender: F College [employer] Education Dean: ROHAN : 1960 Requested By: Adrian Cline Order Number: [id number] MD: Elvin Sheehan Measurements Intervals [place] Rate: 57 P: 12 [place]: 176 QRS: 32 QRSD: 96 T: 52 QT: 478 QTc: 466 Interpretive Statements Sinus rhythm Atrial premature complex Anteroseptal infarct, age indeterminate Compared to ECG 12/16/2019 07:35:16 Atrial premature complex(es) now present Myocardial infarct finding now present Electronically Signed On 12-19-2019 7:45:44 CDT by Elvin Sheehan [email or web address] <ELECTRONICALLY SIGNED> By: Elvin Sheehan MD, FACC 12/19/1947 1 1 Elvin Sheehan MD, FAC /EPI
--- NOTE | 2019-12-19 08:12 | NUR ---
ALERT AND ORIENTED, C/O CHEST INCISION DISCOMFORT. VITALS STABLE, ASSISTED TO CHAIR THIS MORNING BY CARDIAC REHAB NURSE AND TOLERATED WELL. WOUND VAC IN PLACE AND INTACT. AWAITING CCU BED AVAILABILITY.
--- NOTE | 2019-12-19 10:49 | NUR ---
nenita visited with gonzalo at bedside, cm cont to wear face mask and shield during visit. she was up in recliner chair. encouraged her to work hard with therapy so [facility] can get auth for acute rehab on sunday. nenita left senior blue book with gonzalo. no anticipated dc over the weekend.
--- NOTE | 2019-12-19 19:09 | NUR ---
RECEIVED PATIENT REPORT FROM DUSTIN AMAYA. ASSUMED CARE AT THIS TIME.
[2019-12-20] VITALS (13 sets, daily range): BP systolic 90–143; BP diastolic 45–80
--- NOTE | 2019-12-20 11:38 | NUR ---
Pt up in chair since this morning, pt attempting to drink Mag Citrate, therapy came to work with pt and pt vomited. Pt already had prn zofran, pt was given wet warm wash cloth and reclined in chair, lights dimmed and therapy to come back about 1300
--- NOTE | 2019-12-20 13:28 | NUR ---
pt to go to room 213, informed pt, packed belongings.
--- NOTE | 2019-12-20 14:24 | NUR ---
report was given to reinaldo son, pt transfered with all belongings to 213
--- NOTE | 2019-12-20 14:53 | NUR ---
TO UNIT FROM ICU BY CHAIR. NSR PER TELE. DENIES PAIN, SOA. FALL PRECAUTIONS IN PLACE. WILL CONTINUE TO FOLLOW.
[2019-12-21 04:00] VITALS: BP 129/50
--- NOTE | 2019-12-21 07:50 | NUR ---
ASSESSMENT DOCUMENTED.PT BEEN RESTING IN NO ACUTE DISTRESS.A/OX4.VSS.S/P CABG.DRESSING TO STERNUM INTACT.WOUND VAC INPLACE.PT DENIES NEEDS AT THIS TIME.WILL CONTTO MONITOR PER POC.
[2019-12-21 12:56] VITALS: BP 118/61
[2019-12-21 16:30] VITALS: BP 100/54
--- NOTE | 2019-12-21 18:20 | NUR ---
ASSESSMENT CHARTED. PT ALERT AND ORIENTED. VSS. PRN PAIN MED GIVEN FOR STERNUM PAIN. STERNUM PRECAUTION ENFORCED. UP IN THE CHAIR THIS SHIFT. STERNUM PRECAUTION DRESSING INTACT WITH WOUND VAC IN PLACE. PROGRESSING SLOWLY TOWARDS DISCHARGE GOAL. NO CONCERNS AT THIS TIME.
[2019-12-21 19:46] VITALS: BP 118/62
[2019-12-22 04:59] VITALS: BP 111/53
--- NOTE | 2019-12-22 05:25 | NUR ---
PT C/O BACK AND INCISIONAL PAIN AT HS GIVEN PAIN MED AND ABLE TO SLEEP THRU THE NOC, VSS, PT NEEDS MUCH ENCOURAGEMENT TO DO ACTIVITIES ON HER OWN OR AT ATLEAST HELP MUCH SHE CAN AND GET HER ACTIVITY LEVEL UP, WILL CON'T TO MONITORE PER PPOC.
[2019-12-22 07:32] VITALS: BP 120/71
[2019-12-22 12:12] VITALS: BP 103/44
--- NOTE | 2019-12-22 15:09 | NUR ---
FAXED CLINICAL UPDATE TO [facility] SPOKE WITH ADM GARCIASON THEY RECEIVED UPDATE AND WILL SUBMIT FOR AUTH.
[2019-12-22 15:15] VITALS: BP 119/66
--- NOTE | 2019-12-22 15:17 | NUR ---
Cont to await auth for rehab for patient. Patient needs to transfer to portable privina at me and dressing needs to be removed exactly one week from discharge per CTS. Updated patient awaiting auth.
--- NOTE | 2019-12-22 15:39 | HC ---
[facility] [place] [address] CONSULTATION Name: JUNE RUBIN Room #: 213-P ADM IN M.R.#: [id number] Admission: 12/11/19 Attend Phys: Emmanuel Epperson MD Discharge: Date of : 56 Report #: [id number] THIS REPORT FOR: cc: Emmanuel Epperson MD, Neal A. MD Forman, John M. MD ~ DATE OF SERVICE: 12/12/2019 We were asked by Dr. Pennington to see the patient. HISTORY OF PRESENT ILLNESS: The patient is a 59-year-old with coronary artery disease. The patient presents with unstable angina. The patient has had 3 separate episodes of severe chest pain, each one worse than the previous, the last one happening last night. The patient was unable to open her jar of nitroglycerin and called 911. The cio brought her directly to the hospital. Cardiac catheterization was done today and this shows severe 3-vessel disease including 95% proximal LAD stenosis. The LAD was diffusely diseased, but there is other blockage in the right coronary and the circumflex and with a history of diabetes and mild to moderately reduced ventricular function, surgery has been recommended. PAST MEDICAL HISTORY: As mentioned is significant for diabetes mellitus and hypercholesterolemia. The patient denies hypertension. FAMILY HISTORY: Positive for diabetes in both parents and heart disease in father. SOCIAL HISTORY: The patient is a nonsmoker. MEDICATIONS AT HOME: The patient takes Levemir and Janumet for diabetes at home and Protonix. The patient also uses gabapentin at home. Also includes aspirin, lisinopril, and Faith. ALLERGIES: ALLERGIC TO SULFA. REVIEW OF SYSTEMS: GENERAL: No fever or chills. EYES: No vision change. HEENT: No headache, rhinorrhea, or sore throat. RESPIRATORY: Denies cough, shortness of breath. CARDIAC: As mentioned, unstable chest pain. No palpitations. GASTROINTESTINAL: No nausea, vomiting, abdominal pain. GENITOURINARY: No burning, frequency, urgency. [facility] [address] [place] [address] CONSULTATION Name: JUNE RUBIN Room #: 213-[facility] IN M.R.#: [id number] Admission: 12/11/19 Attend Phys: Emmanuel Epperson MD Discharge: Date of : 56 Report #: [id number] MUSCULOSKELETAL: Complains of right knee pain chronically. SKIN: No rash or infection. NEUROLOGIC: Denies motor or sensory dysfunction. ENDOCRINE: Denies goiter or tremor. HEMATOLOGIC AND LYMPHATIC: Denies easy bruisability or bleeding. PHYSICAL EXAMINATION: CONSTITUTIONAL: The patient is lying in bed after cath, appears comfortable. VITAL SIGNS: Temperature 37.2, heart rate 66, blood pressure 140/80, O2 sat 96% on room air. HEENT: No scleral icterus, no arcus. NECK: No mass, no bruit. CHEST: Clear to auscultation. HEART: Rhythm regular, no murmur. ABDOMEN: Soft, no mass, no tenderness. EXTREMITIES: No clubbing, cyanosis or edema. VASCULAR: 2+ dorsalis pedis pulses. No obvious saphenous vein problems. SKIN: No rash, no infection. MUSCULOSKELETAL: No bone or joint abnormalities, although right knee is flexed on a pillow due to discomfort. IMPRESSION: The patient has important 3-vessel coronary artery disease with diabetes mellitus and reduced ventricular function. I have recommended coronary bypass surgery. Risks and details of this were discussed. Options and alternatives were reviewed. Risks include but are not limited to bleeding, infection, anesthesia risks, heart and lung problems, stroke and . The patient understands all of this and wishes to proceed. <ELECTRONICALLY SIGNED> By: Nikos Silverio MD 12/22/19 1539 1055 1338 Nikos Silverio MD /nt
--- NOTE | 2019-12-22 15:39 | O ---
[facility] [place] [address] OPERATIVE REPORT Name: JUNE RUBIN Room #: 213-P ADM IN M.R.#: [id number] Admission: 12/11/19 Attend Phys: Emmanuel Epperson MD Discharge: Date of : 56 Report #: [id number] THIS REPORT FOR: cc: Emmnauel Epperson MD, Neal A. MD Forman, John M. MD ~ CC: Emmanuel Epperson DATE OF SERVICE: 12/15/2019 PREOPERATIVE DIAGNOSIS: Coronary artery disease. POSTOPERATIVE DIAGNOSIS: Coronary artery disease. OPERATION: Coronary artery bypass x 6 including left internal mammary artery to left anterior descending artery, saphenous vein to diagonal 1, marginal 1, and marginal 3, saphenous vein to posterior descending and posterolateral branch and endoscopic harvest, left greater saphenous vein. SURGEON: Nikos Silverio MD SOLAR PHOTOVOLTAIC DESIGNER: NANCY Russo. ANESTHESIA: General. INDICATIONS NEUROLOGIC: The patient is a 59-year-old with coronary artery disease. The patient presents with unstable angina. Catheterization demonstrates severe 3-vessel coronary artery disease with the culprit lesion in the proximal left anterior descending. Left ventricular function is mild to moderately reduced. FINDINGS AND TECHNIQUE: After general anesthesia was established, saphenous vein was harvested using an endoscopic approach and prepared for use as a conduit. Exposure was obtained through median sternotomy. Left internal mammary artery was harvested. A pericardial well was made. Cannulation sutures were placed. Heparin was given. Aorta was cannulated. Right atrium was cannulated. Cardioplegia needle was positioned in the aortic root. Retrograde cardioplegia catheter was placed in the coronary sinus. Cardiopulmonary bypass was established. The aorta was cross clamped, antegrade, then retrograde, cardioplegia were given. Ice was poured into the pericardial well. The heart was stopped. During electromechanical arrest, the distal anastomoses were performed and end-to-side anastomosis was made between vein and the posterolateral branch of [facility] [address] [place] [address] OPERATIVE REPORT Name: JUNE RUBIN Room #: 213-P [facility].#: [id number] Admission: 12/11/19 Attend Phys: Emmanuel Epperson MD Discharge: Date of : 56 Report #: [id number] the right coronary. This was a 1.5 mm vessel. Cold cardioplegia was given. The same segment of vein was sewn in end-to-side fashion to the posterior descending artery. This was a 1.5 mm vessel. Cold cardioplegia was given. A separate segment of vein was sewn in end-to-side fashion to the third marginal. This was a 1.6 mm vessel. Cold cardioplegia was given. Same segment of vein was sewn in end-to-side fashion to the first marginal. This was a 1.6 mm vessel. Cold cardioplegia was given. Same segment of vein was sewn in end-to-side fashion to the second diagonal. This was a 1.5 mm vessel. Cold cardioplegia was given. Left internal mammary artery was sewn in end-to-side fashion to left anterior descending artery. Patency of this vessel was checked with the temperature technique and the Doppler. Cold cardioplegia was given. Two proximal anastomoses were performed. When these were complete, warm retrograde cardioplegia was given followed by warm continuous blood to the coronary sinus. When this infusion was complete, the crossclamp was removed, de-airing maneuvers were performed. The anastomoses were inspected and found to be satisfactory. As the patient warmed, nice cardiac activity resumed, chest tubes and pacing wires were placed, a marker was placed around the proximal anastomoses. When the patient was warm, he was weaned from cardiopulmonary bypass. Venous cannula was removed. Protamine was given, the aortic cannula was removed. Flows were measured in the bypass grafts. When hemostasis was satisfactory, chest was irrigated with antibiotic solution and closed in the usual fashion. The patient was taken to the Intensive Care Unit in good condition having tolerated the procedure well. All counts reported as correct. <ELECTRONICALLY SIGNED> By: Nikos Silverio MD 12/22/19 1539 [id number] Nikos Silverio MD /nt
--- NOTE | 2019-12-22 18:20 | NUR ---
ASSUMED CARE OF PT AT SHIFT CHANGE. ASSESSMENTS CHARTED. MEDS GIVEN PER MAR. PT A&OX4, DECLINED PAIN MEDS. UP TO BSC. PT WORKED WITH PT/OT. PLAN TO DC TOMORROW TO [facility]. WILL CONTINUE TO MONITOR AND FOLLOW POC.
[2019-12-22 20:00] VITALS: BP 127/55
[2019-12-23 03:36] VITALS: BP 133/65
[2019-12-23 08:15] VITALS: BP 127/61
[2019-12-23 08:21] LABS: HEMOGLOBIN 7.9 gm/dL (12.0-15.0); MCH 28.2 pg (26.0-34.0); MCHC 32.9 g/dL (28.0-37.0); MCV 85.8 fL (80.0-100.0); RBC 2.79 mil/uL (4.20-5.00); RDW 15.1 % (10.5-14.5); WBC 16.3 thou/uL (4.0-11.0)
[2019-12-23 08:38] LABS: ALBUMIN 2.2 g/dL (3.4-5.0); CALCIUM 9.4 mg/dL (8.5-10.1); CREATININE 1.5 mg/dL (0.6-1.0); POTASSIUM 5.9 mmol/L (3.5-5.1); TOTAL BILIRUBIN 0.3 mg/dL (0.2-1.0); TOTAL PROTEIN 6.5 g/dL (6.4-8.2)
[2019-12-23] MEDS ORDERED: FERREX 150 PLU1 EAC1 PO (10:42)
[2019-12-23] MEDS ORDERED: LIPITOR40 MG PO (10:43)
[2019-12-23] MEDS ORDERED: LANTUS SUBQ (10:44)
--- NOTE | 2019-12-23 10:48 | NUR ---
RECEIVED CALL FROM ABDULLAHI IN ADM AT [facility] THEY RECEIVED AUTH FOR REHAB STAY SHE SET UP TRANSPORT BY [facility] FOR 1300 PT WILL NOTIFY FAMILY. UNIT NOTIFIED OF TRANSPORT AND CHART COPY PER US. WILL FAX DC ORDERS/SUMMARY ONCE FINALIZED.
[2019-12-23 11:54] VITALS: BP 106/47
--- NOTE | 2019-12-23 12:05 | NUR ---
RECEIVED PT'S CARE AROUND 0720; PT. ON BED; ALERT; DURING AM ASSESSMENT AOX4; AM MEDICATIONS GIVEN; C/O PAIN OVER CHEST; NO PRN PAIN MEDICATION; WORKED WITH PT & OT; NOTICED WBC TRENDING UP & HGB DOWN; PHYSICIAN NOTIFIED; NO NEW ORDERS; POTASSIUM 5.3; PHYSICIAN NOTIFIED; NO NEW ORDERS; PER RADIOLOGIC THERAPIST PT. ACCEPTED ON [facility]; TRANSPORTATION SET UP AT 1300; PT. NOTIFIED; ST. UNDERSTANDING; ASSESSMENT CHARGED; FOLLOWING POC; WILL WORK ON D/C ORDERS;
== END 2019-12-23 13:28 | DRG 233 ==
LOC: ER 19:30 → ICU 21:41 → 2N 21:41 → EROBS 21:41 → 2N 22:28 → ICU 12-15 14:18 → 2N 12-20 14:16
PROVIDERS: Emergency Medicine; Nurse Practitioner Adult Health; Physician Assistant; Surgery Vascular Surgery; ADMIT Family Medicine; ATTEND Family Medicine
DX: I25.110 Atherosclerotic heart disease of native coronary artery with unstable angina pectoris (principal); E43 Unspecified severe protein-calorie malnutrition; N39.0 Urinary tract infection, site not specified; N17.9 Acute kidney failure, unspecified; E78.00 Pure hypercholesterolemia, unspecified; E11.621 Type 2 diabetes mellitus with foot ulcer; E11.42 Type 2 diabetes mellitus with diabetic polyneuropathy; B96.1 Klebsiella pneumoniae [K. pneumoniae] as the cause of diseases classified elsewhere; F32.9 Major depressive disorder, single episode, unspecified; Z60.2 Problems related to living alone; N18.9 Chronic kidney disease, unspecified; E11.22 Type 2 diabetes mellitus with diabetic chronic kidney disease; I25.5 Ischemic cardiomyopathy; S01.112A Laceration without foreign body of left eyelid and periocular area, initial encounter; E78.5 Hyperlipidemia, unspecified; I12.9 Hypertensive chronic kidney disease with stage 1 through stage 4 chronic kidney disease, or unspecified chronic kidney disease; E66.01 Morbid (severe) obesity due to excess calories; K59.00 Constipation, unspecified; J45.909 Unspecified asthma, uncomplicated; E87.5 Hyperkalemia; D72.829 Elevated white blood cell count, unspecified; Z20.828 Contact with and (suspected) exposure to other viral communicable diseases; D64.9 Anemia, unspecified; Z88.2 Allergy status to sulfonamides; Z88.8 Allergy status to other drugs, medicaments and biological substances; Z68.32 Body mass index [BMI] 32.0-32.9, adult; Z95.1 Presence of aortocoronary bypass graft; Z79.82 Long term (current) use of aspirin; Z79.899 Other long term (current) drug therapy; Z23 Encounter for immunization
CPT/HCPCS: 10078; 10081; 27000; 47000; 47001; 47002; 47297; 48888; 50010; 50249; 50409; 50456; 50498; 50668; 51301; 52131; 52259; 52287; 52314; 53327; 53358; 54118; 56455; 56524; 56525; 56526; 56527; 56528; 56531; 56534; 56668; 56719; 56760; 56898; 57093; 57167; 62110; 62950; 65003; 65020; 65047; 65090; 65120; 65135

== ENCOUNTER 2020-01-11 10:12 | Emergency (ER) | payer BC ==
[~2020-01-11] VITALS: Ht 175.3 cm; Wt 116.1 kg
--- NOTE | ~2020-01-11 | EMS ---
[address] [address] EMS Patient Care Report Name: JUNE RUBIN Room #: PRE M.R.#: [id number] Admission: Attend Phys: Discharge: Date of : 56 Report #: [id number] THIS REPORT FOR: //name// Report Transmitted: 01/11/2020 10:01 EMS Care Summary [facility] MED-ACT Incident [id number] @ 01/11/2020 09:25 Incident Location [address] [place] [address] Patient JUNE RUBIN Female, 59 Years 1960 Patient Address [address] [place] [id number] Patient History Angina,Diabetes,Hypertension (HTN),Bronchitis Chronic,Urinary Tract Infection (UTI),Coronary Artery Bypass Graft (CABG),Sepsis, Patient Allergies Sulfa, Patient Medications Lisinopril, Protonix, Lantus, Hydrocodone, Iron, Losartan, Faith, Aspirin, Insulin, Chief Complaint Chest pain Disposition Transported No Lights/[place] Dispatch Reason Chest Pain (Non-Traumatic) Transported To [facility] Narrative INITIAL: Patient found supine in bed. [address] [address] EMS Patient Care Report Name: JUNE RUBIN Room #: [facility] Maisha#: [id number] Admission: Attend Phys: Discharge: Date of : 56 Report #: [id number] HPI: Patient had a CABG x 6 on December 14. She reported that she began having right-sided chest pain about an hour prior to arrival. She said it felt as though she had pulled a muscle and rated her pain 4/10. No left-sided chest pain or other radiation. No pain, swelling, or redness at CABG incision. Patient reported that she began having nausea, vomiting, and diarrhea last night and has since been unable to keep anything down. She thought that maybe all the vomiting had caused her to pull something in her chest. Denied any blood in stool or vomit. Denied fever, cough, shortness of breath. Recently tested negative for COVID and has been in isolation at [facility] due to recent admit. She said she took her medications this morning, but vomited shortly after and believed she probably had not digested them. She decided to hold off on pain management until the hospital. Patient requested transport to [facility], where her heart surgery occurred. PLAN: Vitals, history, assessment, 12 lead. 12 lead showed normal sinus rhythm with no ST elevation. Moved patient to cot and moved to back of ambulance. Patient was actively nauseous, so ondansetron was administered immediately. Transmitted 12 lead and called [facility] for orders. Explained that the patient was actively nauseous and had not been able to keep any medications down this morning. Ondansetron had been administered but not yet controlled nausea. Asked for orders about whether or not aspirin should be administered, or hold off until nausea could be controlled. [facility] ordered that aspirin should be withheld. Transported non-emergency. Vitals remained stable during transport. Transferred patient to ER nurse in room 8. Initial Vitals @09:33P: 75,R: 18,BP: 138/73,Pain: 4/10,GCS: 15,SpO2: 96,Revised Trauma: 12,FL Suspected: false @09:38P: 87,R: 18,BP: 146/76,Pain: 4/10,GCS: 15,SpO2: 98,Revised Trauma: 12,FL Suspected: false @10:02P: 86,R: 18,BP: 136/96,Pain: 4/10,GCS: 15,SpO2: 94,Revised Trauma: 12,FL Suspected: false @09:47P: 87,R: 16,BP: 129/75,Pain: 4/10,GCS: 15,Temp: 97.7F,Glucose: 188,SpO2: 94,Revised Trauma: 12,FL Suspected: false Assessments @09:34MENTAL:Time Oriented,Person Oriented,Event Oriented,Place Oriented,SKIN:HEENT:LUNG SOUNDS:General: Nausea,General: Diarrhea,General: Vomiting,ABDOMEN:General: Nausea,General: Diarrhea,General: Vomiting,PELVIS//GI:EXTREMITIES:PULSE:Radial: 2+ Normal,NEURO: Impression Chest Pain / Discomfort Procedures [facility] [address] [place] [address] EMS Patient Care Report Name: JUNE RUBIN Room #: PRE M.R.#: [id number] Admission: Attend Phys: Discharge: Date of : 56 Report #: [id number] @09:34Surgical Mask on PatientResponse: Unchanged@09:4712-Lead ECGResponse: UnchangedSucceeded@09:3812-Lead ECGResponse: UnchangedSucceeded@09:45Ondansetron - 4 Milligrams (mg) - OralResponse: Improved@09:49Aspirin - - @09:35Fentanyl - - @09:48Consult/Order RequestedResponse: Unchanged@09:48ECG TransmittedResponse: Unchanged Timeline 09:23,Call Received 09:23,Psap Call 09:25,Dispatched 09:26,En Route 09:29,On Scene 09:33,At Patient 09:33,BP: 138/73 M,PULSE: 75,RR: 18 R,SPO2: 96 Ox,ETCO2: ,BG: ,PAIN: 4,GCS: 15, 09:34,Surgical Mask on Patient,Response: Unchanged 09:35,Fentanyl - - , 09:38,12-Lead ECG,Response: UnchangedSucceeded, 09:38,BP: 146/76 M,PULSE: 87,RR: 18 R,SPO2: 98 Ox,ETCO2: ,BG: ,PAIN: 4,GCS: 15, 09:45,Ondansetron - 4 Milligrams (mg) - Oral,Response: Improved 09:47,12-Lead ECG,Response: UnchangedSucceeded, 09:47,BP: 129/75 M,PULSE: 87,RR: 16 R,SPO2: 94 Ox,ETCO2: ,B,PAIN: 4,GCS: 15, 09:47,Depart Scene 09:48,Consult/Order Requested,Response: Unchanged 09:48,ECG Transmitted,Response: Unchanged 09:49,Aspirin - - , 10:02,BP: 136/96 M,PULSE: 86,RR: 18 R,SPO2: 94 Ox,ETCO2: ,BG: ,PAIN: 4,GCS: 15, 10:07,At Destination 10:23,Call Closed Disclaimer v1.1 Copyright 2020 [employer] This EMS Care Summary contains data elements from the applicable legal record (which may be displayed differently). It is designed to provide pertinent information for the following purposes: continuity of care, clinical quality, and state data reporting. The complete legal record is available to ED staff and administrators of the receiving hospital in [facility]'s Patient Tracker. All data is provided "as is."
[~2020-01-11 10:12] MED LIST changes: +ASA81BEC PO; +BYSTOLIC10 MG PO; +DULOXETINE HCL30 MG PO; +FERREX 150 PLU1 EAC1 PO; +LANTUS SUBQ; +LIPITOR40 MG PO; +LISINOPRIL2.5 MG PO; +LIVALO4 MG PO; +LORCET 5-325 M1 EACH PO; +METHOCARBAMOL500 M2 PO; +OXYBUTYNIN ER 55 M1 PO; +REGLAN 5 MG TAB5 MG PO; +SYMBICORT160 MCG/4. INH
[2020-01-11] MEDS ORDERED: AMIODARONE HCL400 MG PO (10:40)
[2020-01-11] MEDS ORDERED: BENZONATATE100 MG PO (10:40)
[2020-01-11] MEDS ORDERED: DULCOLAX5 MG RECTAL (10:42)
[2020-01-11] MEDS ORDERED: IRON325 PO (10:46)
[2020-01-11] MEDS ORDERED: ARNUITY ELLIP100 MCG INH (10:46)
[2020-01-11] MEDS ORDERED: HYDROCODON-ACE1 EAC7 PO ×2 (10:48→10:49)
[2020-01-11] MEDS ORDERED: LANTUS100 UNIT/M SUBQ (10:51)
[2020-01-11 10:52] LABS: BASOPHILS 0.4 % (0.0-2.0); EOSINOPHILS 4.6 % (0.0-3.0); HEMATOCRIT 31.8 % (37.0-47.0); HEMOGLOBIN 10.1 gm/dL (12.0-15.0); LYMPHOCYTES 12.4 % (24.0-44.0); MCH 27.3 pg (26.0-34.0); MCHC 31.8 g/dL (28.0-37.0); MCV 85.9 fL (80.0-100.0); MONOCYTES 4.5 % (1.0-8.0); PLATELET COUNT 418 thou/uL (150-400); POLYS 78.1 % (36.0-66.0); WBC 7.7 thou/uL (4.0-11.0)
[2020-01-11] MEDS ORDERED: HUMALOG JU100 UNIT/1 SUBQ (10:52)
[2020-01-11] MEDS ORDERED: CLARITIN10 MG PO (10:53)
[2020-01-11] MEDS ORDERED: MILK OF MA400 MG/5 M PO (10:54)
[2020-01-11] MEDS ORDERED: METFORMIN HCL500 MG PO (10:54)
[2020-01-11] MEDS ORDERED: REGLAN 10 MG TA10 MG PO ×2 (10:55→15:20)
[2020-01-11 10:56] LABS: ANION GAP 7 mmol/L (7-16); BUN 13 mg/dL (7-18); CALCIUM 9.6 mg/dL (8.5-10.1); CHLORIDE 99 mmol/L (98-107); CO2 29 mmol/L (21-32); CREATININE 1.1 mg/dL (0.6-1.0); GLUCOSE 190 mg/dL (74-106); POTASSIUM 3.9 mmol/L (3.5-5.1); SODIUM 135 mmol/L (136-145)
[2020-01-11] MEDS ORDERED: NEURONTIN300 MG PO (11:00)
[2020-01-11] MEDS ORDERED: NITROSTAT0.4 M1 SUBLING (11:02)
[2020-01-11] MEDS ORDERED: OXYBUTYNIN 5 MG5 M2 PO (11:02)
[2020-01-11] MEDS ORDERED: ONDANSETRON HCL4 M2 PO (11:03)
[2020-01-11] MEDS ORDERED: MIRALAX119 GM PO (11:03)
[2020-01-11] MEDS ORDERED: VITAMINC500 PO (11:03)
[2020-01-11 11:05] LABS: ALBUMIN 3.3 g/dL (3.4-5.0); SGOT 22 U/L (15-37); SGPT 23 U/L (30-65); TOTAL BILIRUBIN 0.4 mg/dL (0.2-1.0); TOTAL PROTEIN 7.6 g/dL (6.4-8.2); TROPONIN-I <0.06 ng/mL (<0.06)
[2020-01-11 16:14] VITALS: BP 164/89
--- NOTE | 2020-01-11 17:32 | EKG ---
[facility] [place] [address] ELECTROCARDIOGRAM REPORT Name: JUNE RUBIN Room #: DEP [facility]#: [id number] Admission: 01/11/20 Attend Phys: Discharge: 01/11/20 Date of : 56 Report #: [id number] THIS REPORT FOR: cc: Carly Machado Emily S. DO Santiago, Patrick MD [facility] ~ THIS REPORT FOR: //name// [facility] ED Test Date: 2020-01-11 Test Time: 10:18:22 Pat Name: JUNE RUBIN Department: Room: Gender: F Presbyterian Clergy: : 1960 Requested By: Ronny Greer Order Number: [id number] MD: Elvin Sheehan Measurements Intervals [place] Rate: 83 P: 31 NV: 180 QRS: 10 QRSD: 99 T: 159 QT: 450 QTc: 529 Interpretive Statements Sinus rhythm Probable left atrial enlargement Nonspecific T abnrm, anterolateral leads Prolonged QT interval Compared to ECG 12/19/2019 07:22:10 Atrial premature complex(es) no longer present Myocardial infarct finding no longer present Electronically Signed On 01-11-2020 17:32:13 LOGGING ASSISTANT by Elvin Sheehan [email or web address] <ELECTRONICALLY SIGNED> By: Elvin Sheehan MD, FACC 01/11/20 1732 1018 1018 Elvin Sheehan MD, FACC /EPI
== END 2020-01-11 16:14 | disposition home or self-care (01) ==
LOC: ER 10:12
PROVIDERS: Emergency Medicine
DX: R07.89 Other chest pain (principal); R11.2 Nausea with vomiting, unspecified; E11.9 Type 2 diabetes mellitus without complications; Z90.89 Acquired absence of other organs; Z79.4 Long term (current) use of insulin; Z79.899 Other long term (current) drug therapy; Z79.82 Long term (current) use of aspirin; Z88.2 Allergy status to sulfonamides; Z91.048 Other nonmedicinal substance allergy status

== ENCOUNTER 2020-02-12 09:41 | Emergency (ER) | payer BC ==
[~2020-02-12] VITALS: Ht 175.3 cm; Wt 108.9 kg
[~2020-02-12 09:41] MED LIST changes: +AMIODARONE HCL400 MG PO; +ARNUITY ELLIP100 MCG INH; +BENZONATATE100 MG PO; +CLARITIN10 MG PO; +DULCOLAX5 MG RECTAL; +HUMALOG JU100 UNIT/1 SUBQ; +HYDROCODON-ACE1 EAC7 PO; +IRON325 PO; +LANTUS100 UNIT/M SUBQ; +METFORMIN HCL500 MG PO; +MILK OF MA400 MG/5 M PO; +MIRALAX119 GM PO; +NITROSTAT0.4 M1 SUBLING; +OXYBUTYNIN 5 MG5 M2 PO; +REGLAN 10 MG TA10 MG PO; +VITAMINC500 PO
[2020-02-12 10:37] LABS: ABSOLUTE NEUTROPHILS 8.7 thou/uL (1.4-8.2); BASOPHILS 0.4 % (0.0-2.0); EOSINOPHILS 2.6 % (0.0-3.0); HEMATOCRIT 37.4 % (37.0-47.0); LYMPHOCYTES 9.8 % (24.0-44.0); MCH 27.1 pg (26.0-34.0); MCV 84.5 fL (80.0-100.0); MONOCYTES 3.6 % (1.0-8.0); PLATELET COUNT 361 thou/uL (150-400); POLYS 83.6 % (36.0-66.0); RBC 4.43 mil/uL (4.20-5.00); RDW 15.7 % (10.5-14.5); WBC 10.4 thou/uL (4.0-11.0)
[2020-02-12 10:44] LABS: CALCIUM 9.8 mg/dL (8.5-10.1); POTASSIUM 4.1 mmol/L (3.5-5.1)
[2020-02-12 10:50] LABS: ALBUMIN 3.4 g/dL (3.4-5.0); TOTAL BILIRUBIN 0.5 mg/dL (0.2-1.0); TOTAL PROTEIN 7.6 g/dL (6.4-8.2)
--- NOTE | 2020-02-12 12:10 | EKG ---
[address] [place] [address] ELECTROCARDIOGRAM REPORT Name: DAYANARAJUNE LAKE Room #: [facility]#: [id number] Admission: 02/12/20 Attend Phys: Discharge: Date of : 56 Report #: [id number] [facility] ED Test Date: 2020-02-12 Test Time: 11:30:08 Pat Name: JUNE RUBIN Department: Room: Gender: F Collections Technician: EMELY : 1960 Requested By: Ronny Greer Order Number: [id number] MD: Elvin Sheehan Measurements Intervals [place] Rate: 70 P: 26 GA: 188 QRS: 4 QRSD: 115 T: 54 QT: 471 QTc: 509 Interpretive Statements Sinus rhythm Multiple ventricular premature complexes Probable left atrial enlargement Nonspecific intraventricular conduction delay Low voltage, precordial leads Compared to ECG 01/11/2020 10:18:22 Ventricular premature complex(es) now present Intraventricular conduction delay now present Low QRS voltage now present Prolonged QT interval no longer present Electronically Signed On 02-12-2020 12:10:08 DISTRIBUTION DISPATCHER by Elvin Sheehan [email or web address] <ELECTRONICALLY SIGNED> By: Elvin Sheehan MD, FACC 02/12/20 1210 1130 1130 Elvin Sheehan MD, [facility] /EPI
[2020-02-12 13:18] LABS: URINE BILIRUBIN NEGATIVE (Negative); URINE BLOOD NEGATIVE (Negative); URINE CLARITY SL CLOUDY; URINE COLOR YELLOW; URINE GLUCOSE-RANDOM* 2+ (Negative); URINE KETONES 1+ (Negative); URINE PROTEIN (DIPSTICK) NEGATIVE (Negative); URINE SPECIFIC GRAVITY 1.015 (1.005-1.035); URINE UROBILINOGEN 0.2 E.U./dl (0.2-1.0)
[2020-02-12 13:19] LABS: URINE LEUKOCYTES-REFLEX 1+ (Negative); URINE NITRITE-REFLEX POSITIVE (Negative)
[2020-02-12 14:09] LABS: BACTERIA-REFLEX >30 Many /HPF (None Seen); CASTS None Seen /LPF (None Seen); CRYSTALS None Seen /LPF (None Seen); SQUAMOUS 0-3 Few /LPF (0-3); URINE RBC None Seen /HPF (0-2); URINE WBC-REFLEX >25 Many /HPF (0-5)
[2020-02-12] MEDS ORDERED: KEFLEX500 M1 PO (14:16)
[2020-02-12] MEDS ORDERED: ZOFRAN ODT4 MG PO (14:16)
[2020-02-12 15:49] VITALS: BP 146/84
== END 2020-02-12 15:50 | disposition home or self-care (01) ==
LOC: ER 09:41
PROVIDERS: Emergency Medicine
DX: R11.2 Nausea with vomiting, unspecified (principal); R10.84 Generalized abdominal pain; E11.9 Type 2 diabetes mellitus without complications; Z90.89 Acquired absence of other organs; Z79.4 Long term (current) use of insulin; Z79.899 Other long term (current) drug therapy; Z79.82 Long term (current) use of aspirin; Z88.2 Allergy status to sulfonamides; Z91.048 Other nonmedicinal substance allergy status

== ENCOUNTER 2020-02-18 09:35 | Inpatient (IN) | payer BC ==
[~2020-02-18] VITALS: Ht 175.3 cm; Wt 98.9 kg
[~2020-02-18 09:35] MED LIST changes: +KEFLEX500 M1 PO; +ZOFRAN ODT4 MG PO
[2020-02-18 09:36] VITALS: BP 127/66
[2020-02-18 12:47] LABS: ABSOLUTE NEUTROPHILS 12.6 thou/uL (1.4-8.2); BASOPHILS 0.3 % (0.0-2.0); EOSINOPHILS 2.6 % (0.0-3.0); HEMATOCRIT 40.1 % (37.0-47.0); HEMOGLOBIN 12.7 gm/dL (12.0-15.0); LYMPHOCYTES 15.2 % (24.0-44.0); MCH 26.6 pg (26.0-34.0); MCHC 31.7 g/dL (28.0-37.0); MCV 83.9 fL (80.0-100.0); MONOCYTES 5.3 % (1.0-8.0); PLATELET COUNT 426 thou/uL (150-400); POLYS 76.6 % (36.0-66.0); RBC 4.78 mil/uL (4.20-5.00); RDW 15.6 % (10.5-14.5); WBC 16.4 thou/uL (4.0-11.0)
[2020-02-18 13:06] LABS: CALCIUM 9.7 mg/dL (8.5-10.1); CREATININE 1.9 mg/dL (0.6-1.0)
[2020-02-18 13:11] LABS: ALBUMIN 3.3 g/dL (3.4-5.0); DIRECT BILIRUBIN 0.1 mg/dL (<0.1-0.2); TOTAL BILIRUBIN 0.5 mg/dL (0.2-1.0); TOTAL PROTEIN 7.2 g/dL (6.4-8.2)
[2020-02-18 13:46] LABS: URINE BILIRUBIN NEGATIVE (Negative); URINE BLOOD NEGATIVE (Negative); URINE CLARITY CLEAR; URINE COLOR YELLOW; URINE GLUCOSE-RANDOM* NEGATIVE (Negative); URINE KETONES NEGATIVE (Negative); URINE LEUKOCYTES-REFLEX NEGATIVE (Negative); URINE NITRITE-REFLEX NEGATIVE (Negative); URINE PROTEIN (DIPSTICK) 1+ (Negative); URINE SPECIFIC GRAVITY >= 1.030 (1.005-1.035)
[2020-02-18 14:01] LABS: HYALINE CASTS 0-3 Few /LPF (None Seen); MUCUS 0-3 Light strn/LPF (None Seen); SQUAMOUS 0-3 Few /LPF (0-3)
[2020-02-18 14:02] LABS: CRYSTALS None Seen /LPF (None Seen)
[2020-02-18 14:03] LABS: FINE GRANULAR CASTS 0-3 Few /LPF (None Seen)
[2020-02-18 14:04] LABS: BACTERIA-REFLEX 1-9 Few /HPF (None Seen); URINE RBC 0-2 Rare /HPF (0-2); URINE WBC-REFLEX 0-5 Rare /HPF (0-5)
--- NOTE | 2020-02-18 14:18 | EKG ---
[place] [address] [facility] [place] [address] ELECTROCARDIOGRAM REPORT Name: JUNE RUBIN Room #: REG [facility]#: [id number] Admission: 02/18/20 Attend Phys: Discharge: Date of : 56 Report #: [id number] [facility] ED Test Date: 2020-02-18 Test Time: 09:56:33 Pat Name: JUNE RUBIN Department: Room: Gender: F Supervisor Paint Department: KF : 1960 Requested By: Colt Osborn Order Number: [id number] MD: Elvin Sheehan Measurements Intervals [place] Rate: 69 P: 51 MS: 171 QRS: -12 QRSD: 83 T: 45 QT: 596 QTc: 639 Interpretive Statements Sinus rhythm Inferior infarct, old Consider anterior infarct Compared to ECG 02/12/2020 11:30:08 Myocardial infarct finding now present Ventricular premature complex(es) no longer present Intraventricular conduction delay no longer present Electronically Signed On 02-18-2020 14:18:17 CAR REPAIRMAN by Elvin Sheehan [email or web address] <ELECTRONICALLY SIGNED> By: Elvin Sheehan MD, [facility] 02/18/20 1418 0956 0956 Elvin Sheehan MD, FAC /EPI
[2020-02-18 16:07] VITALS: BP 137/65
[2020-02-18 16:31] VITALS: BP 126/80
[2020-02-18 17:45] VITALS: BP 144/83
--- NOTE | 2020-02-18 19:54 | NUR ---
PATIENT ADMITTED FROM ER WITH UTI, BRAXTON, AND WEAKNESS. PATIENT STATES SHE FELL YESTERDAY. FALL PRECAUTIONS IN PLACE. PATIENT ALERT AND ORIENTED X4. PATIENT DENIES PAIN AT THIS TIME. ADMISSION COMPLETED, REPORT GIVEN TO BARB/MONIQUE.
--- NOTE | 2020-02-19 03:49 | NUR ---
PROGRESS PT A/O X4. UP WITH SBA GAIT STEADY BUT REPORTED A FALL AT HOME YESTERDAY. LUNGS CLEAR , VSS. ABDOMEN SOFT WITH ACTIVE BS PT STATED SHE HAS SLIGHT NAUSEA ALL THE TIME FOR LAST WEEK BUT DOES NOT FEEL LIKE SHE IS GOING TO VOMIT AT THIS TIME.CALL FROM TONY FROM [facility] [phone] WHO IS CONCERNED ABOUT THE PT'S SAFETY AT HOME AND WANTED CASE MANAGEMENT TO LOOK IN TO PLACEMENT AND REQUESTED A ANISH CONSULT. FAMILY ARE UNABLE TO CARE FOR PATIENT. SPOKE TO DR.ERICKSON OCONNELL CONSULT AND [facility] CONSULT ORDERS OBTAINED.
[2020-02-19 05:50] LABS: HEMATOCRIT 34.1 % (37.0-47.0); MCH 27.2 pg (26.0-34.0); MCHC 32.3 g/dL (28.0-37.0); MCV 84.3 fL (80.0-100.0); RBC 4.04 mil/uL (4.20-5.00); RDW 15.4 % (10.5-14.5); WBC 12.1 thou/uL (4.0-11.0)
[2020-02-19 06:04] LABS: CALCIUM 8.3 mg/dL (8.5-10.1); CREATININE 1.8 mg/dL (0.6-1.0); POTASSIUM 3.1 mmol/L (3.5-5.1)
--- NOTE | 2020-02-19 06:40 | NUR ---
pt reports no urine output since 02/16 bladderscan revealed 119 cc's ivf's continue encouraged pt to drink water.to report to physician on rounds.
[2020-02-19 07:35] VITALS: BP 131/65
--- NOTE | 2020-02-19 14:06 | NUR ---
Called and spoke with patient in re-introduced role of CM. Explained that MD is looking for SNF placement. Patient reports she has been to [facility] and would like a referral sent their for senior living care. DCP sent referral per patient request. [facility] [phone] for possible skilled care. Notified Dr. Epperson of planned skilled location.
--- NOTE | 2020-02-19 14:39 | NUR ---
FAXED REFERRAL TO [facility] SPOKE WITH TERRENCE IN ADM SHE RECEIVED REFERRAL AND THEY CAN ACCEPT BUT WILL NOT HAVE BED AVAILABLE TIL FRIDAY 02/23.
--- NOTE | 2020-02-19 14:49 | NUR ---
Received call from Phuong at [facility] and they can accept patient but not till early net week up till Sunday. Notified Dr. Epperson as this is day one and patient still has not met PT or OT goals. Dr. Epperson acknowledged new possible discharge time frame.
[2020-02-19 15:10] VITALS: BP 135/68
--- NOTE | 2020-02-19 19:00 | NUR ---
PT IS AOX4, VSS, NO PAIN AT THIS TIME. PT IS UP TO BSC, NO N/V NOTED. PT CALLS APPROPRIATELY, FALL PRECAUTIONS IN PLACE. WILL CONTINUE TO MONITOR
[2020-02-19 20:04] VITALS: BP 123/57
[2020-02-20 05:56] LABS: HEMATOCRIT 30.7 % (37.0-47.0); HEMOGLOBIN 10.2 gm/dL (12.0-15.0); MCH 27.9 pg (26.0-34.0); MCHC 33.1 g/dL (28.0-37.0); MCV 84.2 fL (80.0-100.0); RBC 3.65 mil/uL (4.20-5.00); RDW 15.7 % (10.5-14.5); WBC 9.3 thou/uL (4.0-11.0)
[2020-02-20 05:57] LABS: CALCIUM 8.3 mg/dL (8.5-10.1); CREATININE 1.3 mg/dL (0.6-1.0); POTASSIUM 3.5 mmol/L (3.5-5.1)
[2020-02-20 07:30] VITALS: BP 143/70
--- NOTE | 2020-02-20 08:00 | NUR ---
Assumed pt care at 1900. A/OX4,VSS. Denies pain on assessment. Up with AX1 RW/GB to BSC. Sinus zheng on telemetry. IVF infusing via LAC w/o any problems. Fall precautions in place.
--- NOTE | 2020-02-20 09:31 | NUR ---
ASSUMED CARE AT 0700. PT IS A&O X4. PT IS FEELING WEAK. PT DENIES PAIN, N/V/D, SOA. FALL PRECAUTION. CALL LIGHT WITIN REACH. GOOD ADEQUATE DIET. BG IS 171 IN AM. INSULIN WAS GIVEN. SLIGHT SWELLING AT ANKLES. TELE MONITOR INTACT. IV IS INTACT AND SHOWS NO SIGNS OF REDNESS OR SWELLING. FLUIDS ARE GOING AT 100 ML/HR.
[2020-02-20 19:19] VITALS: BP 108/54
--- NOTE | 2020-02-21 04:17 | NUR ---
ASSUMED CARE OF PT AT 1900. PT IS A/O X4 AND IS UP WITH ASSISTANCE TO THE BSC USING WALKER AND GB. CURRENTLY ROOM AIR, SR/SB ON THE HEART MONITOR. VOIDS PER BSC. NO BOWEL MOVEMENT THIS SHIFT. BLOOD SUGAR DID NOT REQUIRE SLIDING SCALE COVERAGE AT HS. PT REFUSED LANTUS TO BE GIVEN. IV INFILTRATED. REMOVED WITH CATHETER INTACT AND REPLACED A NEW IV TO THE LEFT HAND. C/O OF NAUSEA. PRN NAUSEA MEDICATION PROVIDED DIRECTED. NYSTATIN AND INTERDRY APPLIED UNDER BILAT BREAST AND GROIN PRESCRIBED. AT THIS TIME, PT IS LYING IN HER BED WITH HOB ELEVATED AND APPEARS TO BE SLEEPING. SCD'S APPLIED. FALL PRECAUTIONS ARE IN PLACE, CALL LIGHT IS WITHIN REACH. WILL CONTINUE TO MONITOR.
[2020-02-21 04:47] LABS: CALCIUM 8.5 mg/dL (8.5-10.1); CREATININE 1.1 mg/dL (0.6-1.0)
[2020-02-21 07:50] VITALS: BP 164/87
[2020-02-21] MEDS ORDERED: CYMBALTA60 MG PO (09:10)
--- NOTE | 2020-02-21 14:04 | NUR ---
Followup for nutrition education and po intake adequacy. Starting to eat better and drinking 1 glucerna shake daily-wants to increase to BID. BG controlled. Provided basic education for heart healthy, diabetic diet and focus on protein intake. Possible discharge to SNF soon.
[2020-02-21 14:07] VITALS: BP 164/87
[2020-02-21 15:41] VITALS: BP 147/72
--- NOTE | 2020-02-21 16:55 | NUR ---
Assumed care of pt. at 0700. Pt. is calm and cooperative. Pt. was able to ambulate around the room without trouble. No complaints of pain at this time. Pt. voices concern about learning to do ADLs at rehab/advanced skill facility. Fall precautions in place.
[2020-02-21 19:42] VITALS: BP 157/84
--- NOTE | 2020-02-22 02:36 | NUR ---
PT CARE ASSUMED WITH PT IN BED WATCHING TV.PT IS A/O X4.PT IS UP WITH X1 ASSIST TO BSC.PT IV ACCESS ON LAC.PT WORRIED ABOUT REHAB AND GETING BACK HER INDEPENDENT.PT REASSURED AND NO C/O AT THIS PT.WILL CONTINUE TO MONITOR PER POC
--- NOTE | 2020-02-22 10:43 | NUR ---
ASSUMED CARE AT 0700. PT IS A&0 X4. PT DENIES ANY PAIN, N/V,SOA. PT HAS IV ON LEFT HAND AND IS INTACT AND SHOWS NO SIGNS OF REDNESS OR SWELLING. FALL PRECAUTION. CALL LIGHT WITHIN REACH. BSG IS 195 AND INSULIN WAS GIVEN TO PT. SKIN IS INTACT AND NO SIGNS OF REDNESS. PT HAS ADEQUATE NUTRITION. PT DENIES WEAKNESS. PT IS AWARE OF UA. WILL BE DOING UA ONCE PT HAS URINATED AGAIN. SKIN UNDERNEATH BREAST AND GROIN ARE NOT RED AND SMELL SUBSIDED. FLUIDS ARE RUNNING AT 100 ML/HR. PT IS TOLERATING WELL. WILL CONTINUE TO MONITOR.
[2020-02-22 13:32] LABS: URINE BILIRUBIN NEGATIVE (Negative); URINE BLOOD NEGATIVE (Negative); URINE CLARITY CLEAR; URINE COLOR YELLOW; URINE GLUCOSE-RANDOM* NEGATIVE (Negative); URINE KETONES NEGATIVE (Negative); URINE NITRITE-REFLEX NEGATIVE (Negative); URINE PROTEIN (DIPSTICK) NEGATIVE (Negative); URINE UROBILINOGEN 0.2 E.U./dl (0.2-1.0)
[2020-02-22 13:40] LABS: URINE LEUKOCYTES-REFLEX 1+ (Negative)
[2020-02-22 14:15] LABS: BACTERIA-REFLEX 1-9 Few /HPF (None Seen); CASTS None Seen /LPF (None Seen); CRYSTALS None Seen /LPF (None Seen); SQUAMOUS 0-3 Few /LPF (0-3); URINE RBC None Seen /HPF (0-2); URINE WBC-REFLEX 0-5 Rare /HPF (0-5); YEAST-REFLEX Present (None Seen)
[2020-02-22 15:03] VITALS: BP 154/80
[2020-02-22 19:45] VITALS: BP 155/88
--- NOTE | 2020-02-23 02:34 | NUR ---
PT CARE ASSUMED WITH PT IN BED WATCHING TV AT 1900.PT IS A/O X4.PT IS UP WITH STANDBY ASSIST TO RESTROOM AND BSC.PT DENIED PAIN AND N/V.PT WANTS TO BUILD MORE BODY STRENGHT BY WALKING MORE AND WALKING IN THE HALLWAY .IV IN LT HAND.PT IS ACCUCHECK ACHS .WILL CONTINUE TO MONITOR POC
[2020-02-23 06:08] LABS: CALCIUM 9.4 mg/dL (8.5-10.1); POTASSIUM 4.3 mmol/L (3.5-5.1)
[2020-02-23 07:32] VITALS: BP 151/82
--- NOTE | 2020-02-23 15:00 | NUR ---
PT ADMITTED RELATED TO GENERALIZED WEAKNESS, BRAXTON, UTI. CM REVIEWED CHART AND SPOKE WITH CARE TEAM. CM CALLED AND SPOKE WITH PT OVER THE PHONE THIS MORNING. PT INDICATED THAT SHE RESIDES ALONE IN A HOUSE ALONE WITH 12 STEPS TO ENTER THROUGH THE GARAGE AND 6 TO ENTER THROUGH THE FRONT. PT INDICATED THAT HER SISTER IS ASSISTING WITH LAUNDRY. PT HAS A FWW FOR USE UPON DC. PT IS RECEPTIVE TO POST ACUTE CARE STAY AND REFERRAL HAD BEEN SENT TO [facility]. THEY WILL LIKELY BE ABLE TO ACCEPT PT TOMORROW. CLINICAL UPDATE SENT TODAY AND THEY ARE WORKING ON AUTH. CM NOTIFIED PT. CM TO FOLLOW INDICATED WITH DC PLANNING.
[2020-02-23 15:35] VITALS: BP 109/68
--- NOTE | 2020-02-23 16:14 | NUR ---
FAXED CLINICAL UPDATE TO [facility] SPOKE WITH TERRENCE IN ADM SHE RECEIVED UPDATE AND CAN ACCEPT PT AT DC WILL HAVE BED AVAILABLE TOMORROW.
[2020-02-23 19:25] VITALS: BP 146/83
--- NOTE | 2020-02-23 19:59 | NUR ---
Assumed care of pt. at 0700. Pt. was calm and cooperative. Pt. had large BM that was partially watery and caused pt. to be on toilet for [address] Epperson, order for Imodium issued prn if BM persisted. Pt. needed to go 30 minutes later and was given immodium. Pt. IV became infiltrated, unable to insert IV. IV Team called, no response from IV team before change of shift. Fall precautions in place.
--- NOTE | 2020-02-24 01:46 | NUR ---
ASSUMED CARE OF PT AT 1900. PT IS A/O X4 AND IS UP WITH SBA TO THE BR WITH A WALKER AND GB. C/O DIARRHEA TODAY BUT STATED SHE HADN'T HAD A BOWEL MOVEMENT FOR SEVERAL DAYS PRIOR. IMMODIUM WAS OFFERED ON DAY SHIFT. ROOM AIR. VSS. NYSTATIN POWDER APPLIED TO SKIN BELOW BILAT BREAST AND GROIN. MEDICATIONS GIVEN WHOLE WITH WATER. FALL PRECAUTIONS IN PLACE. PT PROGRESSING TOWARDS PT PLAN OF CARE GOALS. WILL CONTINUE TO MONITOR.
[2020-02-24 08:45] VITALS: BP 145/78
[2020-02-24 08:54] VITALS: BP 145/78
--- NOTE | 2020-02-24 10:15 | NUR ---
[facility] HAS AUTH TO ACCEPT PT THIS DAY. COVID TEST TO BE COLLECTED AND RESULTS TO BE SENT TO FACILITY ONCE RECEIVED. TRANSPORT ARRANGED FOR 1300. CHART COPY MADE. ORDERS TO BE FAXED. CM NOTIFIED PT AND SHE IS AWARE AND AGREEABLE. PT'S SISTER NOTIFIED. NO OTHER CM INTERVENTION INDICATED. CASE CLOSED.
--- NOTE | 2020-02-24 10:58 | NUR ---
ASSUMED PT CARE THIS AM. PT VSS, A&OX4. PT HAS NO COMPLAINTS OF PAIN. PT AMBULATORY TO THE BEDSIDE COMMODE. PT REPORTED HAVING DIARRHEA YESTERDAY, TO MONITOR TODAY. MEDS TAKEN WELL THIS AM WITHOUT COMPLAINT. PT HAD NO IV AT START OF SHIFT, ATTEMPTED TO PLACE AN IV WITH NO LUCK. IV TEAM PAGED. PT ON TELE. FALL PRECAUTIONS IN PLACE. PT TO DISCHARGE TODAY.
== END 2020-02-24 12:56 | DRG 682 ==
LOC: ER 09:35 → EROBS 14:45 → 4W 14:45
PROVIDERS: Emergency Medicine; ADMIT Family Medicine; ATTEND Family Medicine
DX: N17.9 Acute kidney failure, unspecified (principal); E43 Unspecified severe protein-calorie malnutrition; N39.0 Urinary tract infection, site not specified; E11.9 Type 2 diabetes mellitus without complications; E87.6 Hypokalemia; I25.10 Atherosclerotic heart disease of native coronary artery without angina pectoris; Z60.2 Problems related to living alone; F32.9 Major depressive disorder, single episode, unspecified; I95.1 Orthostatic hypotension; J45.909 Unspecified asthma, uncomplicated; Z20.828 Contact with and (suspected) exposure to other viral communicable diseases; Z88.2 Allergy status to sulfonamides; Z88.8 Allergy status to other drugs, medicaments and biological substances; Z95.1 Presence of aortocoronary bypass graft; Z68.32 Body mass index [BMI] 32.0-32.9, adult
CPT/HCPCS: 10045

== ENCOUNTER 2020-03-26 14:36 | Emergency (ER) | payer BC ==
[~2020-03-26] VITALS: Ht 175.3 cm; Wt 99.8 kg
[2020-03-26 15:19] LABS: ABSOLUTE NEUTROPHILS 7.9 thou/uL (1.4-8.2); BASOPHILS 0.4 % (0.0-2.0); EOSINOPHILS 0.5 % (0.0-3.0); HEMATOCRIT 40.1 % (37.0-47.0); LYMPHOCYTES 13.9 % (24.0-44.0); MCH 27.2 pg (26.0-34.0); MCHC 32.5 g/dL (28.0-37.0); MCV 83.8 fL (80.0-100.0); MONOCYTES 3.8 % (1.0-8.0); PLATELET COUNT 425 thou/uL (150-400); POLYS 81.4 % (36.0-66.0); RBC 4.79 mil/uL (4.20-5.00); WBC 9.7 thou/uL (4.0-11.0)
[2020-03-26 15:27] LABS: CALCIUM 10.1 mg/dL (8.5-10.1); CREATININE 1.2 mg/dL (0.6-1.0); POTASSIUM 4.4 mmol/L (3.5-5.1)
[2020-03-26 15:34] LABS: ALBUMIN 3.7 g/dL (3.4-5.0); TOTAL BILIRUBIN 0.5 mg/dL (0.2-1.0); TOTAL PROTEIN 7.7 g/dL (6.4-8.2)
[2020-03-26 16:24] LABS: URINE BILIRUBIN NEGATIVE (Negative); URINE BLOOD TRACE (Negative); URINE CLARITY CLEAR; URINE COLOR YELLOW; URINE GLUCOSE-RANDOM* 1+ (Negative); URINE KETONES 2+ (Negative); URINE LEUKOCYTES-REFLEX TRACE (Negative); URINE NITRITE-REFLEX NEGATIVE (Negative); URINE PROTEIN (DIPSTICK) TRACE (Negative)
[2020-03-26] MEDS ORDERED: ZOFRAN ODT4 MG PO (17:52)
[2020-03-26] MEDS ORDERED: REGLAN 10 MG TA10 MG PO (17:53)
[2020-03-26 18:02] VITALS: BP 177/84
--- NOTE | 2020-03-29 07:35 | EKG ---
[place] [address] [facility] [place] [address] ELECTROCARDIOGRAM REPORT Name: JUNE RUBIN Room #: DEP [facility]#: [id number] Admission: 03/26/20 Attend Phys: Discharge: 03/26/20 Date of : 56 Report #: [id number] [facility] ED Test Date: 2020-03-26 Test Time: 15:31:25 Pat Name: JUNE RUBIN Department: Room: Gender: F Boom Pump Operator: katina : 1960 Requested By: Ronny Greer Order Number: [id number] MD: Zacarias Mireles Measurements Intervals [place] Rate: 62 P: 47 WA: 167 QRS: 29 QRSD: 94 T: 80 QT: 456 QTc: 463 Interpretive Statements Sinus rhythm Abnormal T, consider ischemia, anterior leads Compared to ECG 02/18/2020 09:56:33 T-wave abnormality now present Electronically Signed On 03-29-2020 7:35:24 WEALTH MANAGEMENT DIRECTOR by Zacarias Mireles [email or web address] <ELECTRONICALLY SIGNED> By: Zacarias Mireles MD, [facility] 03/29/20 0735 1531 1531 Zacarias Mireles MD, FACC /EPI
== END 2020-03-26 18:11 | disposition home or self-care (01) ==
LOC: ER 14:36
PROVIDERS: Emergency Medicine
DX: R11.2 Nausea with vomiting, unspecified (principal); E11.9 Type 2 diabetes mellitus without complications; Z95.1 Presence of aortocoronary bypass graft; Z90.89 Acquired absence of other organs; Z79.899 Other long term (current) drug therapy; Z79.4 Long term (current) use of insulin; Z88.2 Allergy status to sulfonamides; Z91.048 Other nonmedicinal substance allergy status

== ENCOUNTER → 2020-12-29 | Outpatient (CLI) | payer BC | LOC: SJCVCIMAG 06:47 | PROVIDERS: ATTEND Internal Medicine Cardiovascular Disease | DX: I42.9 Cardiomyopathy, unspecified (principal); R06.00 Dyspnea, unspecified; R07.9 Chest pain, unspecified; I25.10 Atherosclerotic heart disease of native coronary artery without angina pectoris; N18.9 Chronic kidney disease, unspecified; E78.5 Hyperlipidemia, unspecified; E11.22 Type 2 diabetes mellitus with diabetic chronic kidney disease; Z79.82 Long term (current) use of aspirin; Z79.899 Other long term (current) drug therapy; Z88.2 Allergy status to sulfonamides ==